=== PATIENT | female | born 1980 | race Caucasian/White ===

== ENCOUNTER 2019-06-03 12:18 | Inpatient (IN) | payer MEDICAID, OTHER ==
[~2019-06-03] VITALS: Ht 170.2 cm; Wt 79.4 kg
[2019-06-03] VITALS (11 sets, daily range): BP systolic 129–205; BP diastolic 74–125
[2019-06-03 12:56] LABS: CLARITY,URINE CLEAR (Clear); COLOR,URINE YELLOW (Yellow); GLUCOSE, URINE NEGATIVE (Neg); KETONES,URINE NEGATIVE (Neg); LEUKOCYTE ESTERASE ,URINE NEGATIVE (Neg); NITRITES, URINE NEGATIVE (Neg); OCCULT BLOOD,URINE SMALL (Neg); PH,URINE 5.5 (4.8-8.0); PROTEIN,URINE 100 mg/dl (Neg); UROBILINOGEN,URINE 0.2 E.U/dL (0.2-1.0)
[2019-06-03 12:59] LABS: UA COLLECTION TYPE CLN CATCH MIDSTREAM; URINE HCG NEGATIVE (NEG)
[2019-06-03 13:02] LABS: BACTERIA,URINE FEW /HPF (Neg); CELLULAR CAST 0-4 /LPF (NEGATIVE); RBC,URINE 0-2 /HPF (0-2); SQUAMOUS EPITHELIAL CELL,UR MODERATE /LPF (FEW)
[2019-06-03 13:13] LABS: BASOPHILS # (AUTO) 0.1 X10'3 (0-0.2); BASOPHILS % (AUTO) 0.8 % (0-1); EOSINOPHILS # (AUTO) 0.1 X10'3 (0-0.9); EOSINOPHILS % (AUTO) 1.5 % (0-6); HEMATOCRIT 24.8 % (35.0-45.0); HEMOGLOBIN 8.3 g/dl (12.0-16.0); LYMPHOCYTES # (AUTO) 0.9 X10'3 (1.1-4.8); LYMPHOCYTES % (AUTO) 11.8 % (21-51); MEAN CORPUSCULAR HEMOGLOBIN 30.9 PG (27.0-31.0); MEAN CORPUSCULAR HGB CONC 33.4 g/dL (33.0-36.5); MEAN CORPUSCULAR VOLUME 92.5 FL (78-98); MEAN PLATELET VOLUME 8.4 FL (7.4-10.4); MONOCYTES # (AUTO) 0.4 X10'3 (0-0.9); MONOCYTES % (AUTO) 5.4 % (2-12); NEUTROPHILS # (AUTO) 6.4 X10'3 (1.8-7.7); NEUTROPHILS % (AUTO) 80.5 % (42-75); PLATELET COUNT 328 X10'3 (140-440); RED BLOOD COUNT 2.69 X10'6 (4.20-5.60); RED CELL DISTRIBUTION WIDTH 14.7 % (11.5-14.5)
[2019-06-03 13:22] LABS: ALANINE AMINOTRANSFERASE 15 U/L (12-78); ALBUMIN 3.3 G/DL (3.4-5.0); ALBUMIN/GLOBULIN RATIO 0.9 (1.1-1.5); ALKALINE PHOSPHATASE 73 IU/L (46-116); ANION GAP 16 (8-16); ASPARTATE AMINO TRANSFERASE 4 U/L (10-37); BILIRUBIN,TOTAL 0.2 MG/DL (0.1-1.0); BLOOD UREA NITROGEN 119 MG/DL (7-18); BUN/CREATININE RATIO 11.2 (6.6-38.0); CALCIUM 8.5 MG/DL (8.5-10.1); CHLORIDE 107 MMOL/L (99-107); CREATININE 10.58 MG/DL (0.40-0.90); GLUCOSE 103 MG/DL (70-104); LIPASE 266 U/L (73-393); SODIUM 137 MMOL/L (135-145); eGFR 4 ML/MIN
[2019-06-03 13:25] LABS: POTASSIUM 6.8 MMOL/L (3.5-5.1); TOTAL CARBON DIOXIDE 14.1 MMOL/L (24-32)
[2019-06-03] MEDS ORDERED: insulin regular, human 10 units/0.1 ml syringe IV ONE (13:35)
[2019-06-03] MEDS ORDERED: sodium polystyrene sulfonate 15gm/60ml oral suspension PO ONE (13:35)
[2019-06-03] MEDS ORDERED: calcium gluconate inj. 1 GM in normal saline 100ml IV soln 100 ML IV ONE (13:35)
[2019-06-03] MEDS ORDERED: dextrose 50%-water 50ml dispensing syringe IV ONE (13:35)
--- NOTE | 2019-06-03 14:04 | NUR ---
DANY PAIZ AT BEDSIDE ,PT DEXTROSE AND INSULIN AND KAYLATE ADMINISTERED PER PROVIDER ORDERS,PT CALICUM AT PHARMACY ITS AVAILABLE WILL START.
--- NOTE | 2019-06-03 14:15 | NUR ---
CALICUM GLUCONATE INFUSING PER MD ORDERS,CO CHECKED WITH BAILEY RN,PT BP 213/128 PA CHENCHO AT BEDSIDE AND SHE IS AWARE.
[2019-06-03 14:17] LABS: MAGNESIUM 1.9 MG/DL (1.5-2.4); PHOSPHORUS 8.9 MG/DL (2.3-4.5)
--- NOTE | 2019-06-03 14:30 | NUR ---
ENTERER AT BEDSIDE,NO DISTRESS NOTED.WILL CNT TO MONITOR.
[2019-06-03] MEDS ORDERED: acetaminophen 325mg tablet PO PRN ×2 (14:45)
[2019-06-03] MEDS ORDERED: ondansetron/PF 4mg/2ml inj IV PRN (14:45)
[2019-06-03] MEDS: normal saline 1000ml 1,000 ML IV SCH ×2 (15:22→17:18)
[2019-06-03] MEDS ORDERED: LISI-643 PO (15:48)
[2019-06-03] MEDS ORDERED: AMLO5TAB4 PO (15:48)
[2019-06-03 16:03] LABS: ALBUMIN 3.2 G/DL (3.4-5.0); ANION GAP 17 (8-16); BLOOD UREA NITROGEN 124 MG/DL (7-18); BUN/CREATININE RATIO 11.4 (6.6-38.0); CHLORIDE 110 MMOL/L (99-107); CREATINE KINASE 39 U/L (26-192); CREATININE 10.89 MG/DL (0.40-0.90); GLUCOSE 52 MG/DL (70-104); POTASSIUM 4.8 MMOL/L (3.5-5.1); SODIUM 139 MMOL/L (135-145); eGFR 4 ML/MIN
[2019-06-03 16:06] LABS: TOTAL CARBON DIOXIDE 11.8 MMOL/L (24-32)
--- NOTE | 2019-06-03 16:08 | NUR ---
spoke to tiny stein about pt co2 level 11.8 as per tiny no need to call dr white in icu as pt co2 came down from 14.1 to 11.8 and pt has no cheif complaint ,will follow the orders.
[2019-06-03] MEDS ORDERED: hydrALAZINE 20mg/ml inj. IV ONE (17:05)
[2019-06-03] MEDS ORDERED: amLODIPine 5mg tablet PO SCH (17:05)
[2019-06-03 17:46] LABS: UA EOSINOPHILS NO EOS /HPF
--- NOTE | 2019-06-03 18:30 | NUR ---
Patient in room CICU 2014. I have received report from Stella AMARO and had the opportunity to ask questions and assume patient care. Pt resting in bed, on room air with spo2 at 98%, no c/o pain, no s/s of distress, visitor at bedside, all monitoring alarms in place, non skid socks on, call light in reach. Will continue to monitor.
[2019-06-03] MEDS: heparin, porcine 5000 units/ml vial SQ SCH (19:37)
[2019-06-03] MEDS: docusate sod 100mg capsule PO SCH (19:40)
[2019-06-03 20:27] LABS: ALBUMIN 2.9 G/DL (3.4-5.0); ANION GAP 18 (8-16); BLOOD UREA NITROGEN 125 MG/DL (7-18); BUN/CREATININE RATIO 11.7 (6.6-38.0); CALCIUM 8.4 MG/DL (8.5-10.1); CHLORIDE 106 MMOL/L (99-107); CREATININE 10.71 MG/DL (0.40-0.90); GLUCOSE 185 MG/DL (70-104); PHOSPHORUS 8.1 MG/DL (2.3-4.5); POTASSIUM 4.5 MMOL/L (3.5-5.1); SODIUM 137 MMOL/L (135-145); eGFR 4 ML/MIN
[2019-06-03 20:32] LABS: TOTAL CARBON DIOXIDE 13.5 MMOL/L (24-32)
[2019-06-04] VITALS (22 sets, daily range): BP systolic 123–158; BP diastolic 62–164
--- NOTE | 2019-06-04 00:15 | NUR ---
Spoke with Joseluis Pagan HARNESS RIGGER regarding magallanes cath insertion, pt is refusing cath placement, post void residual is 100ml. At this time ok to not place magallanes. Will continue to monitor.
[2019-06-04 00:59] LABS: ALBUMIN 2.8 G/DL (3.4-5.0); ANION GAP 18 (8-16); BLOOD UREA NITROGEN 113 MG/DL (7-18); BUN/CREATININE RATIO 11.1 (6.6-38.0); CHLORIDE 107 MMOL/L (99-107); CREATININE 10.15 MG/DL (0.40-0.90); GLUCOSE 143 MG/DL (70-104); PHOSPHORUS 8.5 MG/DL (2.3-4.5); POTASSIUM 4.4 MMOL/L (3.5-5.1); SODIUM 137 MMOL/L (135-145); eGFR 4 ML/MIN
[2019-06-04 01:03] LABS: TOTAL CARBON DIOXIDE 12.1 MMOL/L (24-32)
[2019-06-04] MEDS: normal saline 1000ml 1,000 ML IV SCH (05:04)
[2019-06-04 05:34] LABS: BASOPHILS % (AUTO) 0.5 % (0-1); EOSINOPHILS # (AUTO) 0.2 X10'3 (0-0.9); EOSINOPHILS % (AUTO) 2.4 % (0-6); LYMPHOCYTES # (AUTO) 0.9 X10'3 (1.1-4.8); LYMPHOCYTES % (AUTO) 13.6 % (21-51); MEAN CORPUSCULAR HEMOGLOBIN 30.2 PG (27.0-31.0); MEAN CORPUSCULAR HGB CONC 33.1 g/dL (33.0-36.5); MEAN CORPUSCULAR VOLUME 91.2 FL (78-98); MEAN PLATELET VOLUME 8.7 FL (7.4-10.4); MONOCYTES # (AUTO) 0.5 X10'3 (0-0.9); MONOCYTES % (AUTO) 7.9 % (2-12); NEUTROPHILS # (AUTO) 5.1 X10'3 (1.8-7.7); NEUTROPHILS % (AUTO) 75.6 % (42-75); PLATELET COUNT 281 X10'3 (140-440); RED BLOOD COUNT 2.33 X10'6 (4.20-5.60); RED CELL DISTRIBUTION WIDTH 14.4 % (11.5-14.5); WHITE BLOOD COUNT 6.7 X10'3 (4.5-11.0)
[2019-06-04 05:45] LABS: HEMATOCRIT 21.2 % (35.0-45.0)
[2019-06-04 06:15] LABS: ALANINE AMINOTRANSFERASE 14 U/L (12-78); ALBUMIN 2.8 G/DL (3.4-5.0); ALBUMIN/GLOBULIN RATIO 0.8 (1.1-1.5); ALKALINE PHOSPHATASE 61 IU/L (46-116); ANION GAP 18 (8-16); ASPARTATE AMINO TRANSFERASE 4 U/L (10-37); BILIRUBIN,TOTAL 0.2 MG/DL (0.1-1.0); BLOOD UREA NITROGEN 111 MG/DL (7-18); BUN/CREATININE RATIO 10.9 (6.6-38.0); CHLORIDE 109 MMOL/L (99-107); CREATININE 10.14 MG/DL (0.40-0.90); GLUCOSE 100 MG/DL (70-104); MAGNESIUM 1.7 MG/DL (1.5-2.4); POTASSIUM 4.7 MMOL/L (3.5-5.1); SODIUM 139 MMOL/L (135-145); TOTAL PROTEIN 6.1 G/DL (6.4-8.2); eGFR 4 ML/MIN
--- NOTE | 2019-06-04 06:26 | NUR ---
Problems reprioritized. Patient report given, questions answered & plan of care reviewed with Stella AMARO.
[2019-06-04 06:28] LABS: PHOSPHORUS 9.2 MG/DL (2.3-4.5)
[2019-06-04 06:30] LABS: TOTAL CARBON DIOXIDE 11.6 MMOL/L (24-32)
--- NOTE | 2019-06-04 06:39 | NUR ---
Patient in room CICU 2014. I have received report from SONDRA Pina and had the opportunity to ask questions and assume patient care.
[2019-06-04] MEDS ORDERED: sodium bicarbonate (8.4%) inj. 150 MEQ in dextrose 5%-water 1,000 ML IV SCH (07:10)
[2019-06-04] MEDS ORDERED: sodium bicarbonate (8.4%) inj. 75 MEQ in dextrose 5% water 500ml 1,075 ML IV SCH (07:20)
[2019-06-04 07:40] LABS: MEAN CORPUSCULAR HGB CONC 32.8 g/dL (33.0-36.5); MEAN CORPUSCULAR VOLUME 91.6 FL (78-98); MEAN PLATELET VOLUME 8.8 FL (7.4-10.4); PLATELET COUNT 281 X10'3 (140-440); RED BLOOD COUNT 2.33 X10'6 (4.20-5.60); RED CELL DISTRIBUTION WIDTH 14.4 % (11.5-14.5); WHITE BLOOD COUNT 5.9 X10'3 (4.5-11.0)
[2019-06-04 07:41] LABS: HEMATOCRIT 21.3 % (35.0-45.0)
[2019-06-04] MEDS: docusate sod 100mg capsule PO SCH ×2 (08:00→20:00)
[2019-06-04 08:08] LABS: ALBUMIN 2.7 G/DL (3.4-5.0); ANION GAP 16 (8-16); BLOOD UREA NITROGEN 116 MG/DL (7-18); BUN/CREATININE RATIO 11.1 (6.6-38.0); CHLORIDE 110 MMOL/L (99-107); CREATININE 10.49 MG/DL (0.40-0.90); GLUCOSE 85 MG/DL (70-104); SODIUM 139 MMOL/L (135-145); eGFR 4 ML/MIN
[2019-06-04 08:10] LABS: TOTAL CARBON DIOXIDE 12.8 MMOL/L (24-32)
[2019-06-04] MEDS: sodium bicarbonate (8.4%) inj. 75 MEQ in dextrose 5% water 500ml 500 ML IV SCH ×3 (08:54→19:20)
[2019-06-04] MEDS: amLODIPine 5mg tablet PO SCH (08:55)
[2019-06-04] MEDS: heparin, porcine 5000 units/ml vial SQ SCH ×2 (08:55→19:25)
[2019-06-04] MEDS: pantoprazole 40 MG vial IV SCH (09:30)
--- NOTE | 2019-06-04 11:30 | NUR ---
Dr Molina spoke with patient re the plan for dialysis and placement of tunnelled cath. Given detailed plan of care and questions answered. Patient made npo pending the tdc. Given printed information on the procedure, dialysis and diet. Market Maker consult made for help with financial aspect.
[2019-06-04] MEDS: calcium acetate 667mg (PhosLO) capsule PO SCH ×2 (12:41→18:17)
[2019-06-04 13:29] LABS: ALBUMIN 2.8 G/DL (3.4-5.0); ANION GAP 15 (8-16); BLOOD UREA NITROGEN 113 MG/DL (7-18); BUN/CREATININE RATIO 11.3 (6.6-38.0); CALCIUM 8.4 MG/DL (8.5-10.1); CHLORIDE 108 MMOL/L (99-107); CREATININE 10.03 MG/DL (0.40-0.90); GLUCOSE 121 MG/DL (70-104); PHOSPHORUS 7.8 MG/DL (2.3-4.5); POTASSIUM 4.8 MMOL/L (3.5-5.1); SODIUM 138 MMOL/L (135-145); TOTAL CARBON DIOXIDE 15.2 MMOL/L (24-32); eGFR 4 ML/MIN
[2019-06-04 16:48] LABS: ALBUMIN 2.9 G/DL (3.4-5.0); ANION GAP 16 (8-16); BLOOD UREA NITROGEN 112 MG/DL (7-18); BUN/CREATININE RATIO 11.1 (6.6-38.0); CALCIUM 8.3 MG/DL (8.5-10.1); CHLORIDE 108 MMOL/L (99-107); CREATININE 10.05 MG/DL (0.40-0.90); GLUCOSE 98 MG/DL (70-104); POTASSIUM 4.6 MMOL/L (3.5-5.1); SODIUM 140 MMOL/L (135-145); TOTAL CARBON DIOXIDE 16.1 MMOL/L (24-32); eGFR 4 ML/MIN
[2019-06-04 16:49] LABS: % IRON SATURATION 9 % (11-46); IRON 22 UG/DL (49-151); TOTAL IRON BINDING CAPACITY 255 UG/DL (259-388)
--- NOTE | 2019-06-04 17:15 | NUR ---
Call from IR that they cannot fit patient into schedule for TDC this evening; Dr Molina took call-they will do first thing tomorrow.
--- NOTE | 2019-06-04 18:15 | NUR ---
Patient in room CICU 2014. I have received report from Stella AMARO and had the opportunity to ask questions and assume patient care. Pt resting in bed with HOB elevated, eating dinner, no s/s of distress, no c/o pain, IV fluids infusing via PIV per provider orders, visitor is at bedside. See interventions, IV flowsheet and EMR for further information. All monitoring alarms audible. Non skid socks on, bed low and locked. Will continue to monitor.
[2019-06-04 20:01] LABS: ALBUMIN 2.8 G/DL (3.4-5.0); ANION GAP 16 (8-16); BLOOD UREA NITROGEN 107 MG/DL (7-18); BUN/CREATININE RATIO 10.5 (6.6-38.0); CALCIUM 8.2 MG/DL (8.5-10.1); CHLORIDE 105 MMOL/L (99-107); CREATININE 10.16 MG/DL (0.40-0.90); GLUCOSE 277 MG/DL (70-104); PHOSPHORUS 6.4 MG/DL (2.3-4.5); POTASSIUM 3.7 MMOL/L (3.5-5.1); SODIUM 137 MMOL/L (135-145); TOTAL CARBON DIOXIDE 16.5 MMOL/L (24-32); eGFR 4 ML/MIN
[2019-06-05] VITALS (26 sets, daily range): BP systolic 115–189; BP diastolic 79–106
[2019-06-05] MEDS: sodium bicarbonate (8.4%) inj. 75 MEQ in dextrose 5% water 500ml 500 ML IV SCH ×5 (02:06→23:36)
[2019-06-05 02:41] LABS: BASOPHILS # (AUTO) 0.1 X10'3 (0-0.2); BASOPHILS % (AUTO) 1.1 % (0-1); EOSINOPHILS # (AUTO) 0.2 X10'3 (0-0.9); EOSINOPHILS % (AUTO) 3.9 % (0-6); LYMPHOCYTES # (AUTO) 1.4 X10'3 (1.1-4.8); MEAN CORPUSCULAR HEMOGLOBIN 30.5 PG (27.0-31.0); MEAN CORPUSCULAR HGB CONC 33.6 g/dL (33.0-36.5); MEAN CORPUSCULAR VOLUME 90.7 FL (78-98); MEAN PLATELET VOLUME 8.8 FL (7.4-10.4); MONOCYTES # (AUTO) 0.4 X10'3 (0-0.9); MONOCYTES % (AUTO) 7.3 % (2-12); NEUTROPHILS # (AUTO) 3.4 X10'3 (1.8-7.7); NEUTROPHILS % (AUTO) 62.7 % (42-75); PLATELET COUNT 281 X10'3 (140-440); RED BLOOD COUNT 2.26 X10'6 (4.20-5.60); WHITE BLOOD COUNT 5.5 X10'3 (4.5-11.0)
[2019-06-05 02:45] LABS: HEMATOCRIT 20.5 % (35.0-45.0); HEMOGLOBIN 6.9 g/dl (12.0-16.0)
[2019-06-05 02:55] LABS: ALANINE AMINOTRANSFERASE 14 U/L (12-78); ALBUMIN 2.6 G/DL (3.4-5.0); ALBUMIN/GLOBULIN RATIO 0.8 (1.1-1.5); ALKALINE PHOSPHATASE 68 IU/L (46-116); ANION GAP 12 (8-16); ASPARTATE AMINO TRANSFERASE 8 U/L (10-37); BILIRUBIN,TOTAL 0.2 MG/DL (0.1-1.0); BLOOD UREA NITROGEN 107 MG/DL (7-18); BUN/CREATININE RATIO 10.4 (6.6-38.0); CALCIUM 8.2 MG/DL (8.5-10.1); CHLORIDE 108 MMOL/L (99-107); GLUCOSE 103 MG/DL (70-104); MAGNESIUM 1.8 MG/DL (1.5-2.4); POTASSIUM 4.3 MMOL/L (3.5-5.1); SODIUM 140 MMOL/L (135-145); TOTAL PROTEIN 5.9 G/DL (6.4-8.2); eGFR 4 ML/MIN
--- NOTE | 2019-06-05 06:17 | NUR ---
Problems reprioritized. Patient report given, questions answered & plan of care reviewed with Taisha AMARO.
[2019-06-05] MEDS ORDERED: fentaNYL/PF 50MCG/1 ML 2ML syringe IV PRN (07:10)
[2019-06-05] MEDS ORDERED: LIDOcaine 1%/PF 5ML 10 MG/ML VIAL SQ ONE (07:10)
[2019-06-05] MEDS ORDERED: midazolam 2 mg/2 ml injection IV PRN (07:10)
[2019-06-05] MEDS ORDERED: heparin 1,000 units/ml 10ml inj ICATH ONE (07:10)
[2019-06-05 07:23] LABS: MEAN CORPUSCULAR HEMOGLOBIN 30.2 PG (27.0-31.0); MEAN CORPUSCULAR HGB CONC 33.3 g/dL (33.0-36.5); MEAN CORPUSCULAR VOLUME 90.9 FL (78-98); MEAN PLATELET VOLUME 8.7 FL (7.4-10.4); PLATELET COUNT 278 X10'3 (140-440); RED BLOOD COUNT 2.21 X10'6 (4.20-5.60); RED CELL DISTRIBUTION WIDTH 14.2 % (11.5-14.5)
--- NOTE | 2019-06-05 07:29 | NUR ---
TRANSFERRED ,VIA BED, TO IR FOR T.D.C. PLACEMENT AT THIS TIME. PT AND INR RESULTS PENDING. ONE UNIT OF [place]. ORDERED. Addendum: 06/05/19 at 8733 by Cecy Floyd RN Amended: Links added.
[2019-06-05] MEDS ORDERED: LIDOcaine 1%/PF 5ML 10 MG/ML VIAL ONE (07:31)
[2019-06-05 07:35] LABS: HEMOGLOBIN 6.7 g/dl (12.0-16.0)
[2019-06-05] MEDS ORDERED: ceFAZolin 1GM/D5W- ADD-VANTAGE 50 ML IV ONE (07:35)
[2019-06-05] MEDS ORDERED: heparin 1,000unit/ml 10ml vial 10 ML ONE (07:35)
[2019-06-05] MEDS ORDERED: midazolam 2 mg/2 ml injection ONE (07:35)
[2019-06-05 07:36] LABS: HEMATOCRIT 20.1 % (35.0-45.0)
[2019-06-05] MEDS ORDERED: fentaNYL/PF 50MCG/1 ML 2ML syringe ONE (07:36)
[2019-06-05 07:42] LABS: PARTIAL THROMBOPLASTIN TIME 21 SECONDS (22-32)
[2019-06-05] MEDS ORDERED: normal saline 1000ml 250 ML IV PRN ×2 (08:00→09:21)
[2019-06-05] MEDS ORDERED: epoetin 20,000 units/ml inj IV ONE ×2 (08:00→09:25)
[2019-06-05] MEDS: docusate sod 100mg capsule PO SCH ×2 (08:00→21:31)
[2019-06-05] MEDS ORDERED: heparin 1,000 units/ml 10ml inj HE ONE ×4 (08:00→09:25)
[2019-06-05 08:03] LABS: ALBUMIN 2.6 G/DL (3.4-5.0); ANION GAP 17 (8-16); BLOOD UREA NITROGEN 109 MG/DL (7-18); BUN/CREATININE RATIO 10.8 (6.6-38.0); CALCIUM 7.6 MG/DL (8.5-10.1); CHLORIDE 107 MMOL/L (99-107); CREATININE 10.08 MG/DL (0.40-0.90); GLUCOSE 88 MG/DL (70-104); PHOSPHORUS 8.2 MG/DL (2.3-4.5); POTASSIUM 4.5 MMOL/L (3.5-5.1); SODIUM 144 MMOL/L (135-145); TOTAL CARBON DIOXIDE 20.4 MMOL/L (24-32); eGFR 4 ML/MIN
--- NOTE | 2019-06-05 10:00 | NUR ---
PAT[place] [facility] [place]FFICULTY; HOWEVER, B/P CUFF FREQ OFF. EDUCATION REGARDING B/P CUFF AND RECORDED B/P GIVEN.HOB UP CALL LIGHT IN REACH. Addendum: 06/05/19 at 1806 by Cecy Floyd RN Amended: Links added.
[2019-06-05] MEDS: calcium acetate 667mg (PhosLO) capsule PO SCH ×3 (10:01→17:43)
[2019-06-05] MEDS: heparin, porcine 5000 units/ml vial SQ SCH ×2 (10:01→21:31)
[2019-06-05] MEDS: amLODIPine 5mg tablet PO SCH (10:02)
[2019-06-05] MEDS: pantoprazole 40 MG vial IV SCH (10:07)
[2019-06-05] MEDS ORDERED: labetalol 20mg/4ml (5mg/ml) syringe IV ONE (11:45)
--- NOTE | 2019-06-05 12:00 | NUR ---
PATIENT'S B/P ELEVATED. CALL PLACED TO DR. DEL RIO; ORDERS RECEIVED AND NOTED. LABETALOL 10 MG IV GIVEN. Addendum: 06/05/19 at 1806 by Cecy Floyd RN Amended: Links added.
[2019-06-05 14:28] LABS: BASOPHILS % (AUTO) 0.5 % (0-1); EOSINOPHILS # (AUTO) 0.2 X10'3 (0-0.9); EOSINOPHILS % (AUTO) 2.6 % (0-6); HEMATOCRIT 24.2 % (35.0-45.0); HEMOGLOBIN 8.1 g/dl (12.0-16.0); LYMPHOCYTES # (AUTO) 1.1 X10'3 (1.1-4.8); LYMPHOCYTES % (AUTO) 15.8 % (21-51); MEAN CORPUSCULAR HEMOGLOBIN 30.3 PG (27.0-31.0); MEAN CORPUSCULAR HGB CONC 33.3 g/dL (33.0-36.5); MEAN CORPUSCULAR VOLUME 91.1 FL (78-98); MEAN PLATELET VOLUME 9.5 FL (7.4-10.4); MONOCYTES # (AUTO) 0.4 X10'3 (0-0.9); MONOCYTES % (AUTO) 5.7 % (2-12); NEUTROPHILS # (AUTO) 5.2 X10'3 (1.8-7.7); NEUTROPHILS % (AUTO) 75.4 % (42-75); PLATELET COUNT 235 X10'3 (140-440); RED BLOOD COUNT 2.66 X10'6 (4.20-5.60); RED CELL DISTRIBUTION WIDTH 14.1 % (11.5-14.5); WHITE BLOOD COUNT 6.9 X10'3 (4.5-11.0)
[2019-06-05 14:44] LABS: ALBUMIN 2.8 G/DL (3.4-5.0); ANION GAP 16 (8-16); BLOOD UREA NITROGEN 101 MG/DL (7-18); BUN/CREATININE RATIO 10.6 (6.6-38.0); CHLORIDE 105 MMOL/L (99-107); CREATININE 9.51 MG/DL (0.40-0.90); GLUCOSE 156 MG/DL (70-104); PHOSPHORUS 7.2 MG/DL (2.3-4.5); POTASSIUM 4.4 MMOL/L (3.5-5.1); SODIUM 140 MMOL/L (135-145); TOTAL CARBON DIOXIDE 18.9 MMOL/L (24-32); eGFR 5 ML/MIN
[2019-06-05] MEDS ORDERED: lactulose 20gm/30ml cup PO PRN (14:45)
[2019-06-05] MEDS: HYDROcodone/acetaminophen 10/325mg tab PO PRN (15:07)
[2019-06-05] MEDS ORDERED: nicotine 21mg patch - 24 hr TD ONE (15:50)
--- NOTE | 2019-06-05 16:01 | NUR ---
AT 0900 PATIENT RETURNED FROM IR WITH Cm SZYMANSKI. DENIES C/P SOB AND, OR, NAUSEA.ONE UNIT OF P.R.B.C. STARTED IN I.R AND INFUSING AT THIS TIME. SR. ANGUS HOB UP CALL LIGHT IN REACH. Addendum: 06/05/19 at 1636 by Cecy Floyd RN Amended: Links added.
--- NOTE | 2019-06-05 18:39 | NUR ---
Patient in room CICU 2014. I have received report from Henna RN and had the opportunity to ask questions and assume patient care.
[2019-06-05 19:58] LABS: BASOPHILS % (AUTO) 0.5 % (0-1); EOSINOPHILS # (AUTO) 0.1 X10'3 (0-0.9); HEMATOCRIT 23.9 % (35.0-45.0); HEMOGLOBIN 8.4 g/dl (12.0-16.0); LYMPHOCYTES # (AUTO) 0.8 X10'3 (1.1-4.8); LYMPHOCYTES % (AUTO) 16.7 % (21-51); MEAN CORPUSCULAR HEMOGLOBIN 31.1 PG (27.0-31.0); MEAN CORPUSCULAR VOLUME 88.8 FL (78-98); MEAN PLATELET VOLUME 8.4 FL (7.4-10.4); MONOCYTES # (AUTO) 0.3 X10'3 (0-0.9); MONOCYTES % (AUTO) 6.7 % (2-12); NEUTROPHILS # (AUTO) 3.6 X10'3 (1.8-7.7); NEUTROPHILS % (AUTO) 74.1 % (42-75); PLATELET COUNT 284 X10'3 (140-440); RED BLOOD COUNT 2.69 X10'6 (4.20-5.60); WHITE BLOOD COUNT 4.9 X10'3 (4.5-11.0)
[2019-06-05 20:17] LABS: ALBUMIN 2.9 G/DL (3.4-5.0); ANION GAP 8 (8-16); BLOOD UREA NITROGEN 45 MG/DL (7-18); BUN/CREATININE RATIO 9.7 (6.6-38.0); CALCIUM 8.4 MG/DL (8.5-10.1); CHLORIDE 103 MMOL/L (99-107); CREATININE 4.65 MG/DL (0.40-0.90); GLUCOSE 145 MG/DL (70-104); PHOSPHORUS 3.9 MG/DL (2.3-4.5); POTASSIUM 3.8 MMOL/L (3.5-5.1); SODIUM 139 MMOL/L (135-145); TOTAL CARBON DIOXIDE 28.4 MMOL/L (24-32); eGFR 10 ML/MIN
[2019-06-05] MEDS ORDERED: labetalol 20mg/4ml (5mg/ml) syringe IV PRN (22:45)
[2019-06-06] VITALS (21 sets, daily range): BP systolic 143–186; BP diastolic 10–104
[2019-06-06] MEDS ORDERED: temazepam 15mg capsule PO PRN
--- NOTE | 2019-06-06 00:45 | NUR ---
Problems reprioritized. Patient report given, questions answered & plan of care reviewed with Doyle AMARO.
[2019-06-06] MEDS: hydrOXYzine 25 MG tablet PO PRN ×2 (00:53→09:26)
[2019-06-06] MEDS ORDERED: labetalol 20mg/4ml (5mg/ml) syringe IV PRN (01:30)
[2019-06-06] MEDS ORDERED: labetalol 20mg/4ml (5mg/ml) syringe IV ONE (01:30)
[2019-06-06 05:44] LABS: BASOPHILS % (AUTO) 0.3 % (0-1); EOSINOPHILS # (AUTO) 0.2 X10'3 (0-0.9); EOSINOPHILS % (AUTO) 2.4 % (0-6); HEMATOCRIT 23.5 % (35.0-45.0); HEMOGLOBIN 8.1 g/dl (12.0-16.0); LYMPHOCYTES # (AUTO) 1.3 X10'3 (1.1-4.8); LYMPHOCYTES % (AUTO) 19.4 % (21-51); MEAN CORPUSCULAR HEMOGLOBIN 30.6 PG (27.0-31.0); MEAN CORPUSCULAR HGB CONC 34.4 g/dL (33.0-36.5); MEAN CORPUSCULAR VOLUME 89.1 FL (78-98); MEAN PLATELET VOLUME 8.9 FL (7.4-10.4); MONOCYTES # (AUTO) 0.4 X10'3 (0-0.9); MONOCYTES % (AUTO) 6.1 % (2-12); NEUTROPHILS # (AUTO) 4.8 X10'3 (1.8-7.7); NEUTROPHILS % (AUTO) 71.8 % (42-75); PLATELET COUNT 284 X10'3 (140-440); RED BLOOD COUNT 2.64 X10'6 (4.20-5.60); RED CELL DISTRIBUTION WIDTH 13.8 % (11.5-14.5); WHITE BLOOD COUNT 6.7 X10'3 (4.5-11.0)
[2019-06-06 05:49] LABS: ALANINE AMINOTRANSFERASE 15 U/L (12-78); ALBUMIN 2.8 G/DL (3.4-5.0); ALBUMIN/GLOBULIN RATIO 0.8 (1.1-1.5); ALKALINE PHOSPHATASE 62 IU/L (46-116); ANION GAP 11 (8-16); ASPARTATE AMINO TRANSFERASE 9 U/L (10-37); BILIRUBIN,TOTAL 0.1 MG/DL (0.1-1.0); BLOOD UREA NITROGEN 49 MG/DL (7-18); BUN/CREATININE RATIO 8.3 (6.6-38.0); CALCIUM 8.4 MG/DL (8.5-10.1); CHLORIDE 105 MMOL/L (99-107); CREATININE 5.91 MG/DL (0.40-0.90); GLUCOSE 123 MG/DL (70-104); MAGNESIUM 1.7 MG/DL (1.5-2.4); PHOSPHORUS 6.6 MG/DL (2.3-4.5); POTASSIUM 3.7 MMOL/L (3.5-5.1); SODIUM 143 MMOL/L (135-145); TOTAL CARBON DIOXIDE 27.3 MMOL/L (24-32); TOTAL PROTEIN 6.1 G/DL (6.4-8.2); eGFR 8 ML/MIN
[2019-06-06] MEDS ORDERED: normal saline 1000ml 250 ML IV PRN ×2 (06:50→08:00)
[2019-06-06] MEDS ORDERED: heparin 1,000unit/ml 10ml vial 10 ML IV ONE ×2 (06:50→08:00)
[2019-06-06] MEDS ORDERED: epoetin 20,000 units/ml inj IV ONE ×2 (06:50→08:00)
[2019-06-06] MEDS ORDERED: heparin 1,000 units/ml 10ml inj HE ONE ×3 (06:55→08:00)
[2019-06-06] MEDS: pantoprazole 40mg Tablet.DR PO SCH (07:54)
[2019-06-06] MEDS: heparin, porcine 5000 units/ml vial SQ SCH ×2 (07:54→19:38)
[2019-06-06] MEDS: amLODIPine 5mg tablet PO SCH ×2 (07:54→21:43)
[2019-06-06] MEDS: docusate sod 100mg capsule PO SCH ×2 (07:54→19:38)
[2019-06-06] MEDS: nicotine 21mg patch - 24 hr TD SCH (07:55)
[2019-06-06 08:16] LABS: COMPLEMENT C3, SERUM 110 mg/dL (82-167); COMPLEMENT C4, SERUM 19 mg/dL (14-44)
[2019-06-06 09:11] LABS: ALBUMIN 2.8 G/DL (3.4-5.0); ANION GAP 8 (8-16); BLOOD UREA NITROGEN 49 MG/DL (7-18); BUN/CREATININE RATIO 7.7 (6.6-38.0); CHLORIDE 107 MMOL/L (99-107); CREATININE 6.36 MG/DL (0.40-0.90); GLUCOSE 88 MG/DL (70-104); PHOSPHORUS 6.9 MG/DL (2.3-4.5); POTASSIUM 4.2 MMOL/L (3.5-5.1); SODIUM 144 MMOL/L (135-145); TOTAL CARBON DIOXIDE 29.2 MMOL/L (24-32); eGFR 7 ML/MIN
[2019-06-06] MEDS: calcium acetate 667mg (PhosLO) capsule PO SCH ×3 (10:46→17:42)
[2019-06-06] MEDS: labetalol 100mg tablet PO SCH ×2 (11:10→19:39)
[2019-06-06] MEDS: folic acid/vitamin B complex w/vitamin C 0.8mg tablet PO SCH (11:59)
[2019-06-06 12:46] LABS: % IRON SATURATION 20 % (11-46); IRON 52 UG/DL (49-151); TOTAL IRON BINDING CAPACITY 261 UG/DL (259-388)
[2019-06-06 13:10] LABS: ANTI-DSDNA ANTIBODIES 1 IU/mL (0-9)
[2019-06-06 15:09] LABS: HBSAG SCREEN Negative (Negative)
--- NOTE | 2019-06-06 16:44 | NUR ---
Pt transferred to room 4021A at this time, Per W/C. In stable condition. REport given to RN (Susy) .
--- NOTE | 2019-06-06 17:00 | NUR ---
Patient in room ORTHO 4021. I have received report from DUNG AMARO and had the opportunity to ask questions and assume patient care.
--- NOTE | 2019-06-06 18:20 | NUR ---
Problems reprioritized. Patient report given, questions answered & plan of care reviewed with GERTRUDE AMARO.
--- NOTE | 2019-06-06 18:20 | NUR ---
Patient in room ORTHO 4021. I have received report from Jonn AMARO and had the opportunity to ask questions and assume patient care.
[2019-06-06] MEDS ORDERED: labetalol 100mg tablet PO SCH (20:00)
[2019-06-07 06:00] VITALS: BP 158/90
--- NOTE | 2019-06-07 06:04 | NUR ---
Problems reprioritized. Patient report given, questions answered & plan of care reviewed with Jonn AMARO.
--- NOTE | 2019-06-07 06:05 | NUR ---
Patient in room ORTHO 4021. I have received report from GERTRUDE AMARO and had the opportunity to ask questions and assume patient care.
[2019-06-07 06:51] LABS: BASOPHILS % (AUTO) 0.7 % (0-1); EOSINOPHILS # (AUTO) 0.3 X10'3 (0-0.9); EOSINOPHILS % (AUTO) 4.4 % (0-6); HEMOGLOBIN 8.1 g/dl (12.0-16.0); LYMPHOCYTES # (AUTO) 1.3 X10'3 (1.1-4.8); LYMPHOCYTES % (AUTO) 23.2 % (21-51); MEAN CORPUSCULAR HEMOGLOBIN 30.8 PG (27.0-31.0); MEAN CORPUSCULAR HGB CONC 33.8 g/dL (33.0-36.5); MEAN PLATELET VOLUME 8.4 FL (7.4-10.4); MONOCYTES # (AUTO) 0.6 X10'3 (0-0.9); MONOCYTES % (AUTO) 9.7 % (2-12); NEUTROPHILS # (AUTO) 3.6 X10'3 (1.8-7.7); PLATELET COUNT 269 X10'3 (140-440); RED BLOOD COUNT 2.64 X10'6 (4.20-5.60); RED CELL DISTRIBUTION WIDTH 14.2 % (11.5-14.5); WHITE BLOOD COUNT 5.7 X10'3 (4.5-11.0)
[2019-06-07 07:13] LABS: ALANINE AMINOTRANSFERASE 13 U/L (12-78); ALBUMIN 2.8 G/DL (3.4-5.0); ALBUMIN/GLOBULIN RATIO 0.8 (1.1-1.5); ALKALINE PHOSPHATASE 58 IU/L (46-116); ANION GAP 9 (8-16); ASPARTATE AMINO TRANSFERASE 9 U/L (10-37); BILIRUBIN,TOTAL 0.2 MG/DL (0.1-1.0); BLOOD UREA NITROGEN 37 MG/DL (7-18); BUN/CREATININE RATIO 7.6 (6.6-38.0); CALCIUM 9.3 MG/DL (8.5-10.1); CHLORIDE 106 MMOL/L (99-107); CREATININE 4.84 MG/DL (0.40-0.90); GLUCOSE 93 MG/DL (70-104); MAGNESIUM 2.1 MG/DL (1.5-2.4); PHOSPHORUS 5.9 MG/DL (2.3-4.5); POTASSIUM 5.2 MMOL/L (3.5-5.1); SODIUM 143 MMOL/L (135-145); TOTAL CARBON DIOXIDE 28.3 MMOL/L (24-32); TOTAL PROTEIN 6.3 G/DL (6.4-8.2); eGFR 10 ML/MIN
[2019-06-07] MEDS: docusate sod 100mg capsule PO SCH ×2 (08:32→20:00)
[2019-06-07] MEDS: sodium ferric gluc complex inj 125 MG in normal saline 100ml IV soln 100 ML IV SCH (08:32)
[2019-06-07] MEDS: labetalol 100mg tablet PO SCH ×2 (08:33→20:00)
[2019-06-07] MEDS: folic acid/vitamin B complex w/vitamin C 0.8mg tablet PO SCH (08:33)
[2019-06-07] MEDS: calcium acetate 667mg (PhosLO) capsule PO SCH ×3 (08:36→18:29)
[2019-06-07] MEDS: heparin, porcine 5000 units/ml vial SQ SCH ×2 (08:36→20:00)
[2019-06-07] MEDS: nicotine 21mg patch - 24 hr TD SCH (08:39)
[2019-06-07] MEDS: pantoprazole 40mg Tablet.DR PO SCH (08:39)
[2019-06-07 10:00] VITALS: BP 163/93
--- NOTE | 2019-06-07 10:21 | NUR ---
Initial: Pt admit with renal failure and hyperkalemia, s/p CT which revealed possible pelvic mass per MD notes. Pt has been started on dialysis as well as Nephro-gail, Iron, and PhosLo. Pt currently on renal diet documented with 75-100% PO intake meeting nutrient needs with adequate protein to meet the demands of HD. LBM 06/06. No edema or wounds. No nutrition diagnosis at this time. Will continue to follow. Recommendations: 1) Continue renal diet 2) Monitor need for ONS if PO intake declines 3) Routine bowel care 4) Wt per rx Addendum: 06/07/19 at [address] Amended: Links added.
--- NOTE | 2019-06-07 18:25 | NUR ---
Problems reprioritized. Patient report given, questions answered & plan of care reviewed with TYRA AMARO.
[2019-06-07 19:00] VITALS: BP 197/112
[2019-06-07] MEDS: HYDROcodone/acetaminophen 10/325mg tab PO PRN (21:00)
[2019-06-07] MEDS: amLODIPine 5mg tablet PO SCH (21:02)
[2019-06-07 23:00] VITALS: BP 181/98
[2019-06-08 06:00] VITALS: BP 168/93
--- NOTE | 2019-06-08 06:21 | NUR ---
report received from SONDRA Dean
[2019-06-08 06:22] LABS: BASOPHILS % (AUTO) 0.5 % (0-1); EOSINOPHILS # (AUTO) 0.4 X10'3 (0-0.9); EOSINOPHILS % (AUTO) 4.8 % (0-6); HEMATOCRIT 23.6 % (35.0-45.0); HEMOGLOBIN 7.9 g/dl (12.0-16.0); LYMPHOCYTES # (AUTO) 1.6 X10'3 (1.1-4.8); LYMPHOCYTES % (AUTO) 20.7 % (21-51); MEAN CORPUSCULAR HEMOGLOBIN 31.1 PG (27.0-31.0); MEAN CORPUSCULAR HGB CONC 33.5 g/dL (33.0-36.5); MEAN CORPUSCULAR VOLUME 92.8 FL (78-98); MEAN PLATELET VOLUME 8.6 FL (7.4-10.4); MONOCYTES # (AUTO) 0.7 X10'3 (0-0.9); MONOCYTES % (AUTO) 8.5 % (2-12); NEUTROPHILS % (AUTO) 65.5 % (42-75); PLATELET COUNT 282 X10'3 (140-440); RED BLOOD COUNT 2.55 X10'6 (4.20-5.60); RED CELL DISTRIBUTION WIDTH 14.1 % (11.5-14.5); WHITE BLOOD COUNT 7.6 X10'3 (4.5-11.0)
[2019-06-08 06:35] LABS: ALANINE AMINOTRANSFERASE 14 U/L (12-78); ALBUMIN 2.9 G/DL (3.4-5.0); ALBUMIN/GLOBULIN RATIO 0.8 (1.1-1.5); ALKALINE PHOSPHATASE 63 IU/L (46-116); ANION GAP 9 (8-16); ASPARTATE AMINO TRANSFERASE 10 U/L (10-37); BILIRUBIN,TOTAL 0.2 MG/DL (0.1-1.0); BLOOD UREA NITROGEN 57 MG/DL (7-18); BUN/CREATININE RATIO 8.1 (6.6-38.0); CALCIUM 9.2 MG/DL (8.5-10.1); CHLORIDE 106 MMOL/L (99-107); CREATININE 7.03 MG/DL (0.40-0.90); GLUCOSE 98 MG/DL (70-104); MAGNESIUM 1.9 MG/DL (1.5-2.4); POTASSIUM 5.5 MMOL/L (3.5-5.1); SODIUM 140 MMOL/L (135-145); TOTAL PROTEIN 6.4 G/DL (6.4-8.2); eGFR 7 ML/MIN
[2019-06-08] MEDS: heparin, porcine 5000 units/ml vial SQ SCH ×2 (08:00→19:52)
[2019-06-08] MEDS ORDERED: heparin 1,000 units/ml 10ml inj HE ONE ×2 (08:00)
[2019-06-08] MEDS ORDERED: epoetin 20,000 units/ml inj IV ONE (08:00)
[2019-06-08] MEDS ORDERED: heparin 1,000unit/ml 10ml vial 10 ML IV ONE (08:00)
[2019-06-08] MEDS: calcium acetate 667mg (PhosLO) capsule PO SCH ×3 (08:05→19:56)
[2019-06-08] MEDS: folic acid/vitamin B complex w/vitamin C 0.8mg tablet PO SCH (08:05)
[2019-06-08] MEDS: docusate sod 100mg capsule PO SCH ×2 (08:05→19:56)
[2019-06-08] MEDS: labetalol 100mg tablet PO SCH ×3 (08:05→19:56)
[2019-06-08] MEDS: pantoprazole 40mg Tablet.DR PO SCH (08:05)
--- NOTE | 2019-06-08 08:29 | NUR ---
pt stated her IV was causing her pain. IV dc'ed and intact. Addendum: 06/08/19 at 0832 by Susie Ricardo - STUDENT TERRI Amended: Links added.
--- NOTE | 2019-06-08 08:59 | NUR ---
pt wanted to wait for new IV after shower.
--- NOTE | 2019-06-08 09:00 | NUR ---
will hang IV medications when new IV is inserted, after shower per pt request.
[2019-06-08] MEDS: nicotine 21mg patch - 24 hr TD SCH (09:41)
[2019-06-08] MEDS: HYDROcodone/acetaminophen 10/325mg tab PO PRN (12:06)
[2019-06-08] MEDS ORDERED: tuberculin, purif. prot. deriv. 5 units/0.1ml ID ONE (14:15)
[2019-06-08 14:35] VITALS: BP 173/95
[2019-06-08] MEDS: sodium ferric gluc complex inj 125 MG in normal saline 100ml IV soln 100 ML IV SCH (15:52)
[2019-06-08 18:00] VITALS: BP 203/100
--- NOTE | 2019-06-08 18:23 | NUR ---
Problems reprioritized. Patient report given, questions answered & plan of care reviewed with BENTON AMARO.
--- NOTE | 2019-06-08 18:23 | NUR ---
report given to SONDRA Crain. pt moustapha.
--- NOTE | 2019-06-08 18:26 | NUR ---
Student documentation: I have reviewed and agree with all interventions, assessments performed and documented by ELLIOTT GARCIA.
--- NOTE | 2019-06-08 18:26 | NUR ---
Student Medication Administration: For this medication-pass time frame, all medication were reviewed, dispensed, administered and documented per hospital policy by ELLIOTT GARCIA.
[2019-06-08] MEDS: amLODIPine 5mg tablet PO SCH (19:56)
[2019-06-08] MEDS: cloNIDine 0.1 mg tablet PO SCH (20:01)
[2019-06-08 22:00] VITALS: BP 184/96
[2019-06-08 22:30] VITALS: BP 170/96
[2019-06-08] MEDS ORDERED: hydrALAZINE 20mg/ml inj. IV PRN (22:30)
[2019-06-08 23:00] VITALS: BP 155/98
[2019-06-09 02:36] VITALS: BP_SYST 160; BP_SYST 184; BP_DIAS 93; BP_DIAS 96
[2019-06-09 06:00] VITALS: BP 162/89
[2019-06-09 06:53] LABS: BASOPHILS % (AUTO) 0.5 % (0-1); EOSINOPHILS # (AUTO) 0.3 X10'3 (0-0.9); EOSINOPHILS % (AUTO) 3.4 % (0-6); HEMATOCRIT 25.4 % (35.0-45.0); HEMOGLOBIN 8.4 g/dl (12.0-16.0); LYMPHOCYTES # (AUTO) 1.3 X10'3 (1.1-4.8); LYMPHOCYTES % (AUTO) 15.7 % (21-51); MEAN CORPUSCULAR HEMOGLOBIN 30.5 PG (27.0-31.0); MEAN CORPUSCULAR HGB CONC 32.8 g/dL (33.0-36.5); MEAN CORPUSCULAR VOLUME 92.8 FL (78-98); MEAN PLATELET VOLUME 8.2 FL (7.4-10.4); MONOCYTES # (AUTO) 0.6 X10'3 (0-0.9); MONOCYTES % (AUTO) 7.1 % (2-12); NEUTROPHILS # (AUTO) 5.9 X10'3 (1.8-7.7); NEUTROPHILS % (AUTO) 73.3 % (42-75); PLATELET COUNT 344 X10'3 (140-440); RED BLOOD COUNT 2.74 X10'6 (4.20-5.60); RED CELL DISTRIBUTION WIDTH 14.2 % (11.5-14.5); WHITE BLOOD COUNT 8.1 X10'3 (4.5-11.0)
[2019-06-09 07:14] LABS: ALANINE AMINOTRANSFERASE 25 U/L (12-78); ALBUMIN 2.9 G/DL (3.4-5.0); ALBUMIN/GLOBULIN RATIO 0.8 (1.1-1.5); ALKALINE PHOSPHATASE 68 IU/L (46-116); ANION GAP 10 (8-16); ASPARTATE AMINO TRANSFERASE 24 U/L (10-37); BILIRUBIN,TOTAL 0.2 MG/DL (0.1-1.0); BLOOD UREA NITROGEN 33 MG/DL (7-18); BUN/CREATININE RATIO 6.4 (6.6-38.0); CALCIUM 9.3 MG/DL (8.5-10.1); CHLORIDE 105 MMOL/L (99-107); CREATININE 5.16 MG/DL (0.40-0.90); GLUCOSE 90 MG/DL (70-104); MAGNESIUM 2.1 MG/DL (1.5-2.4); PHOSPHORUS 5.6 MG/DL (2.3-4.5); POTASSIUM 5.1 MMOL/L (3.5-5.1); SODIUM 141 MMOL/L (135-145); TOTAL CARBON DIOXIDE 25.8 MMOL/L (24-32); TOTAL PROTEIN 6.7 G/DL (6.4-8.2); eGFR 9 ML/MIN
[2019-06-09] MEDS: docusate sod 100mg capsule PO SCH ×2 (08:00→20:54)
[2019-06-09] MEDS: calcium acetate 667mg (PhosLO) capsule PO SCH ×3 (08:56→18:47)
[2019-06-09] MEDS: cloNIDine 0.1 mg tablet PO SCH ×3 (08:56→20:55)
[2019-06-09] MEDS: labetalol 100mg tablet PO SCH ×3 (08:58→20:55)
[2019-06-09] MEDS: folic acid/vitamin B complex w/vitamin C 0.8mg tablet PO SCH (08:59)
[2019-06-09] MEDS: heparin, porcine 5000 units/ml vial SQ SCH ×2 (09:00→20:55)
[2019-06-09] MEDS: nicotine 21mg patch - 24 hr TD SCH (09:01)
[2019-06-09] MEDS: pantoprazole 40mg Tablet.DR PO SCH (09:10)
[2019-06-09] MEDS: sodium ferric gluc complex inj 125 MG in normal saline 100ml IV soln 100 ML IV SCH (09:10)
[2019-06-09 10:00] VITALS: BP 160/107
[2019-06-09 18:40] VITALS: BP 167/93
[2019-06-09] MEDS: amLODIPine 5mg tablet PO SCH (20:55)
[2019-06-09 23:00] VITALS: BP 165/90
[2019-06-10] MEDS: HYDROcodone/acetaminophen 10/325mg tab PO PRN (02:59)
[2019-06-10 06:00] VITALS: BP 150/84
--- NOTE | 2019-06-10 06:33 | NUR ---
Problems reprioritized. Patient report given, questions answered & plan of care reviewed with BRIAN. Addendum: 06/10/19 at 0633 by Harmeet Law RN Amended: Links added.
--- NOTE | 2019-06-10 06:40 | NUR ---
report received from SONDRA Simeon.
[2019-06-10 07:01] LABS: BASOPHILS # (AUTO) 0.1 X10'3 (0-0.2); BASOPHILS % (AUTO) 0.7 % (0-1); EOSINOPHILS # (AUTO) 0.4 X10'3 (0-0.9); EOSINOPHILS % (AUTO) 4.1 % (0-6); HEMATOCRIT 24.1 % (35.0-45.0); HEMOGLOBIN 8.1 g/dl (12.0-16.0); LYMPHOCYTES # (AUTO) 1.5 X10'3 (1.1-4.8); MEAN CORPUSCULAR HEMOGLOBIN 31.3 PG (27.0-31.0); MEAN CORPUSCULAR HGB CONC 33.5 g/dL (33.0-36.5); MEAN CORPUSCULAR VOLUME 93.5 FL (78-98); MEAN PLATELET VOLUME 8.2 FL (7.4-10.4); MONOCYTES # (AUTO) 0.8 X10'3 (0-0.9); MONOCYTES % (AUTO) 8.2 % (2-12); NEUTROPHILS # (AUTO) 6.6 X10'3 (1.8-7.7); PLATELET COUNT 346 X10'3 (140-440); RED BLOOD COUNT 2.57 X10'6 (4.20-5.60); RED CELL DISTRIBUTION WIDTH 13.7 % (11.5-14.5); WHITE BLOOD COUNT 9.3 X10'3 (4.5-11.0)
[2019-06-10 07:19] LABS: ALANINE AMINOTRANSFERASE 24 U/L (12-78); ALBUMIN 2.9 G/DL (3.4-5.0); ALBUMIN/GLOBULIN RATIO 0.8 (1.1-1.5); ALKALINE PHOSPHATASE 74 IU/L (46-116); ANION GAP 13 (8-16); ASPARTATE AMINO TRANSFERASE 17 U/L (10-37); BILIRUBIN,TOTAL 0.2 MG/DL (0.1-1.0); BLOOD UREA NITROGEN 59 MG/DL (7-18); BUN/CREATININE RATIO 8.2 (6.6-38.0); CALCIUM 9.3 MG/DL (8.5-10.1); CHLORIDE 102 MMOL/L (99-107); CREATININE 7.23 MG/DL (0.40-0.90); GLUCOSE 94 MG/DL (70-104); MAGNESIUM 2.5 MG/DL (1.5-2.4); PHOSPHORUS 6.8 MG/DL (2.3-4.5); POTASSIUM 5.5 MMOL/L (3.5-5.1); SODIUM 137 MMOL/L (135-145); TOTAL CARBON DIOXIDE 21.6 MMOL/L (24-32); TOTAL PROTEIN 6.7 G/DL (6.4-8.2); eGFR 6 ML/MIN
[2019-06-10] MEDS: folic acid/vitamin B complex w/vitamin C 0.8mg tablet PO SCH (07:50)
[2019-06-10] MEDS: docusate sod 100mg capsule PO SCH ×2 (07:50→19:45)
[2019-06-10] MEDS: cloNIDine 0.1 mg tablet PO SCH ×3 (07:50→19:48)
[2019-06-10] MEDS: pantoprazole 40mg Tablet.DR PO SCH (07:50)
[2019-06-10] MEDS: calcium acetate 667mg (PhosLO) capsule PO SCH ×3 (07:50→19:45)
[2019-06-10] MEDS: heparin, porcine 5000 units/ml vial SQ SCH ×2 (07:51→19:52)
[2019-06-10] MEDS: labetalol 100mg tablet PO SCH ×3 (07:51→19:48)
[2019-06-10] MEDS ORDERED: epoetin 20,000 units/ml inj IV ONE (08:00)
[2019-06-10] MEDS ORDERED: normal saline 1000ml 250 ML IV PRN (08:00)
[2019-06-10] MEDS ORDERED: heparin 1,000unit/ml 10ml vial 10 ML IV ONE (08:00)
[2019-06-10] MEDS ORDERED: heparin 1,000 units/ml 10ml inj HE ONE ×2 (08:00)
[2019-06-10] MEDS: sodium ferric gluc complex inj 125 MG in normal saline 100ml IV soln 100 ML IV SCH (09:29)
[2019-06-10] MEDS: nicotine 21mg patch - 24 hr TD SCH (09:29)
[2019-06-10 10:00] VITALS: BP 137/82
[2019-06-10 18:00] VITALS: BP 162/83
--- NOTE | 2019-06-10 18:19 | NUR ---
Patient in room ORTHO 4021. I have received report from SONDRA Capellan and had the opportunity to ask questions and assume patient care. Patient is sitting up in bed, dialysis nurse is starting dialysis. Patient is A&O x4, BOWLING and is appropriate.
--- NOTE | 2019-06-10 18:19 | NUR ---
Report given to SONDRA Groves. pt moustapha.
[2019-06-10] MEDS: amLODIPine 5mg tablet PO SCH (19:48)
[2019-06-10] MEDS ORDERED: LABE100T5 PO (20:41)
[2019-06-10] MEDS ORDERED: NICO-687 TD (20:41)
[2019-06-10 22:51] VITALS: BP 183/94
[2019-06-11 06:00] VITALS: BP 146/86
--- NOTE | 2019-06-11 06:18 | NUR ---
Problems reprioritized. Patient report given, questions answered & plan of care reviewed with SONDRA Capellan.
[2019-06-11 06:20] LABS: BASOPHILS # (AUTO) 0.1 X10'3 (0-0.2); BASOPHILS % (AUTO) 0.9 % (0-1); EOSINOPHILS # (AUTO) 0.3 X10'3 (0-0.9); EOSINOPHILS % (AUTO) 3.6 % (0-6); HEMATOCRIT 26.5 % (35.0-45.0); HEMOGLOBIN 8.8 g/dl (12.0-16.0); LYMPHOCYTES # (AUTO) 1.2 X10'3 (1.1-4.8); MEAN CORPUSCULAR HEMOGLOBIN 31.1 PG (27.0-31.0); MEAN CORPUSCULAR HGB CONC 33.4 g/dL (33.0-36.5); MEAN CORPUSCULAR VOLUME 93.2 FL (78-98); MEAN PLATELET VOLUME 7.9 FL (7.4-10.4); MONOCYTES # (AUTO) 0.8 X10'3 (0-0.9); MONOCYTES % (AUTO) 9.6 % (2-12); NEUTROPHILS # (AUTO) 5.6 X10'3 (1.8-7.7); NEUTROPHILS % (AUTO) 70.9 % (42-75); PLATELET COUNT 361 X10'3 (140-440); RED BLOOD COUNT 2.84 X10'6 (4.20-5.60); WHITE BLOOD COUNT 7.8 X10'3 (4.5-11.0)
--- NOTE | 2019-06-11 06:23 | NUR ---
report received from SONDRA Groves.
[2019-06-11 06:56] LABS: ALANINE AMINOTRANSFERASE 25 U/L (12-78); ALBUMIN 3.1 G/DL (3.4-5.0); ALBUMIN/GLOBULIN RATIO 0.7 (1.1-1.5); ALKALINE PHOSPHATASE 80 IU/L (46-116); ANION GAP 10 (8-16); ASPARTATE AMINO TRANSFERASE 16 U/L (10-37); BILIRUBIN,TOTAL 0.2 MG/DL (0.1-1.0); BLOOD UREA NITROGEN 31 MG/DL (7-18); BUN/CREATININE RATIO 6.4 (6.6-38.0); CALCIUM 10.6 MG/DL (8.5-10.1); CHLORIDE 102 MMOL/L (99-107); CREATININE 4.84 MG/DL (0.40-0.90); GLUCOSE 96 MG/DL (70-104); MAGNESIUM 2.4 MG/DL (1.5-2.4); SODIUM 138 MMOL/L (135-145); TOTAL PROTEIN 7.5 G/DL (6.4-8.2); eGFR 10 ML/MIN
[2019-06-11] MEDS: docusate sod 100mg capsule PO SCH (07:23)
[2019-06-11] MEDS: calcium acetate 667mg (PhosLO) capsule PO SCH (07:24)
[2019-06-11] MEDS: folic acid/vitamin B complex w/vitamin C 0.8mg tablet PO SCH (07:24)
[2019-06-11] MEDS: pantoprazole 40mg Tablet.DR PO SCH (07:24)
[2019-06-11] MEDS: labetalol 100mg tablet PO SCH (07:24)
[2019-06-11] MEDS: heparin, porcine 5000 units/ml vial SQ SCH (07:26)
[2019-06-11] MEDS: cloNIDine 0.1 mg tablet PO SCH (07:30)
[2019-06-11] MEDS: nicotine 21mg patch - 24 hr TD SCH (08:00)
--- NOTE | 2019-06-11 08:05 | NUR ---
pt would like to wait for her nicotine patch until after she has her shower.
[2019-06-11 08:35] LABS: HBSAG SCREEN Negative (Negative)
[2019-06-11 10:00] VITALS: BP 134/68
--- NOTE | 2019-06-11 11:20 | NUR ---
central line dressing changed. Addendum: 06/11/19 at 1122 by Susie Ricardo - STUDENT TERRI disregard upper note, changed TDC dressing.
--- NOTE | 2019-06-11 11:29 | NUR ---
Patient was discharged iv and and tele was removed from patient. patient left with family. appointment was made with [facility], patient will go on Monday. medications were called in to [facility] . Patient will picker/puller medication
[2019-07-22] MEDS ORDERED: LABE300T2 PO (15:40)
[2019-07-22] MEDS ORDERED: FOLI0.8T39 PO (15:40)
[2019-07-22] MEDS ORDERED: LOSA50TA64 PO (15:40)
[2019-07-22] MEDS ORDERED: PHO667C PO (15:45)
[2019-07-22] MEDS ORDERED: LOSA50TA3 PO (15:47)
[2019-07-22] MEDS ORDERED: AMLO2.5T2 PO (15:48)
== END 2019-06-11 10:15 | disposition home or self-care (01) | DRG 469 ==
LOC: ER 12:18 → CICU 2S 16:35 → ORTHO 4S 06-06 16:56 → CMPBEDREQ 06-10 18:04
PROC: 0JH63XZ Insertion of Tunneled Vascular Access Device into Chest Subcutaneous Tissue and Fascia, Percutaneous Approach (ICD-10-PCS; principal; 2019-06-05)
PROC: 02H633Z Insertion of Infusion Device into Right Atrium, Percutaneous Approach (ICD-10-PCS; 2019-06-05)
PROC: B244ZZZ Ultrasonography of Right Heart (ICD-10-PCS; 2019-06-05)
PROC: 30233N1 Transfusion of Nonautologous Red Blood Cells into Peripheral Vein, Percutaneous Approach (ICD-10-PCS; 2019-06-05)
PROC: 5A1D70Z Performance of Urinary Filtration, Intermittent, Less than 6 Hours Per Day (ICD-10-PCS; 2019-06-05)
PROC: 5A1D70Z Performance of Urinary Filtration, Intermittent, Less than 6 Hours Per Day (ICD-10-PCS; 2019-06-06)
PROC: 5A1D70Z Performance of Urinary Filtration, Intermittent, Less than 6 Hours Per Day (ICD-10-PCS; 2019-06-08)
PROC: 5A1D70Z Performance of Urinary Filtration, Intermittent, Less than 6 Hours Per Day (ICD-10-PCS; 2019-06-10)
DX: N17.9 Acute kidney failure, unspecified (principal); I73.1 Thromboangiitis obliterans [Buerger's disease]; E87.5 Hyperkalemia; K57.12 Diverticulitis of small intestine without perforation or abscess without bleeding; R18.8 Other ascites; I80.8 Phlebitis and thrombophlebitis of other sites; D50.9 Iron deficiency anemia, unspecified; N92.0 Excessive and frequent menstruation with regular cycle; K21.9 Gastro-esophageal reflux disease without esophagitis; D25.9 Leiomyoma of uterus, unspecified; K52.9 Noninfective gastroenteritis and colitis, unspecified; N83.9 Noninflammatory disorder of ovary, fallopian tube and broad ligament, unspecified; F17.220 Nicotine dependence, chewing tobacco, uncomplicated; Z99.2 Dependence on renal dialysis; Z88.2 Allergy status to sulfonamides; Z98.891 History of uterine scar from previous surgery; Z79.899 Other long term (current) drug therapy
CPT/HCPCS: 36415; 36558; 71045; 74176; 76856; 76937; 77001; 80053; 80069; 81001; 81025; 82550; 82570; 82948; 83520; 83540; 83550; 83605; 83690; 83735; 83874; 83935; 84100; 84300; 85025; 85027; 85610; 85730; 86160; 86304; 86885; 86900; 86901; 86920; 87081; 87088; 87207; 87340; 93005; 93971; 96365; 96375; 99152; 99153; 99285; A9270; C1750; C1894; C9113; G0257; G0378; J0360; J0610; J0690; J1644; J1815; J2150; J2250; J2916; J3010; J3490; P9016; Q4081; Z7610

== ENCOUNTER 2019-07-25 08:51 | Day surgery (SDC) | payer MEDICAID ==
[2019-07-22 16:01] LABS: BASOPHILS # (AUTO) 0.1 X10'3 (0-0.2); BASOPHILS % (AUTO) 1.1 % (0-1); EOSINOPHILS # (AUTO) 0.3 X10'3 (0-0.9); EOSINOPHILS % (AUTO) 4.5 % (0-6); LYMPHOCYTES # (AUTO) 1.2 X10'3 (1.1-4.8); LYMPHOCYTES % (AUTO) 17.7 % (21-51); MEAN CORPUSCULAR HEMOGLOBIN 32.1 PG (27.0-31.0); MEAN CORPUSCULAR HGB CONC 32.5 g/dL (33.0-36.5); MEAN CORPUSCULAR VOLUME 98.8 FL (78-98); MEAN PLATELET VOLUME 7.4 FL (7.4-10.4); MONOCYTES # (AUTO) 0.4 X10'3 (0-0.9); MONOCYTES % (AUTO) 6.1 % (2-12); NEUTROPHILS # (AUTO) 4.8 X10'3 (1.8-7.7); NEUTROPHILS % (AUTO) 70.6 % (42-75); PRE OP HEMATOCRIT 36.1 % (35.0-45.0); PRE OP HEMOGLOBIN 11.7 g/dL (12.0-16.0); PRE OP PLATELET COUNT 310 X10'3 (140-440); RED BLOOD COUNT 3.66 X10'6 (4.20-5.60); RED CELL DISTRIBUTION WIDTH 19.3 % (11.5-14.5)
[2019-07-22 16:17] LABS: CLARITY,URINE CLEAR (Clear); COLOR,URINE YELLOW (Yellow); GLUCOSE, URINE NEGATIVE (Neg); KETONES,URINE NEGATIVE (Neg); LEUKOCYTE ESTERASE ,URINE NEGATIVE (Neg); NITRITES, URINE NEGATIVE (Neg); OCCULT BLOOD,URINE TRACE-INTACT (Neg); PROTEIN,URINE >=300 mg/dl (Neg); UROBILINOGEN,URINE 0.2 E.U/dL (0.2-1.0)
[2019-07-22 16:21] LABS: UA COLLECTION TYPE CLN CATCH MIDSTREAM
[2019-07-22 16:21] LABS: ALBUMIN 3.7 G/DL (3.4-5.0); ALBUMIN/GLOBULIN RATIO 0.9 (1.1-1.5); ALKALINE PHOSPHATASE 86 IU/L (46-116); BLOOD UREA NITROGEN 68 MG/DL (7-18); CALCIUM 9.1 MG/DL (8.5-10.1); CHLORIDE 102 MMOL/L (99-107); CREATININE 9.68 MG/DL (0.40-0.90); PRE OP ALT 16 U/L (30-65); PRE OP ANION GAP 15 (8-16); PRE OP AST 8 U/L (10-37); PRE OP BILIRUB, TOTAL 0.4 MG/DL (0.0-1.0); PRE OP GLUCOSE 93 MG/DL (70-104); PRE OP SODIUM 135 MMOL/L (135-145); TOTAL CARBON DIOXIDE 17.7 MMOL/L (24-32); TOTAL PROTEIN 7.6 G/DL (6.4-8.2); eGFR 4 ML/MIN
[2019-07-22 16:23] LABS: PRE OP PARTIAL THROMB. TIME 25 SECONDS (22-32); PRE OP PROTIME 9.5 SECONDS (9.0-12.0)
[2019-07-22 16:32] LABS: BACTERIA,URINE FEW /HPF (Neg); RBC,URINE 0-2 /HPF (0-2); WBC,URINE 0-4 /HPF (0-4)
[2019-07-22 16:33] LABS: RENAL CELLS, URINE FEW /HPF; SQUAMOUS EPITHELIAL CELL,UR MANY /LPF (FEW); TRANSITIONAL EPI CELLS,URINE FEW /HPF
[2019-07-22 16:34] LABS: HCG SERUM QL NEGATIVE; PRE OP POTASSIUM 6.6 MMOL/L (3.4-5.1)
[2019-07-22 16:36] LABS: PRE OP INR < 0.9 INR
[2019-07-22 16:54] LABS: PLATELET ESTIMATE NORMAL
[2019-07-22 16:55] LABS: ANISOCYTOSIS 1+; POIKILOCYTOSIS 1+; POLYCHROMASIA 1+
[2019-07-22 16:56] LABS: BURR CELLS 1+; ELLIPTOCYTES FEW; SCHISTOCYTES 1+; TEAR DROP CELLS FEW
[2019-07-22 16:57] LABS: ROULEAUX 1+
[~2019-07-25] VITALS: Ht 170.2 cm; Wt 81.6 kg
[~2019-07-25 08:51] MED LIST: AMLO2.5T2 PO; DOCUMENT DATE & TIME OF BETA-BLOCKER PO ONE; FOLI0.8T39 PO; LABE300T2 PO; LOSA50TA3 PO; PHO667C PO; ceFOXitin 2 GM ADDvantage bag 100 ML IV ONE; famotidine 20mg tablet PO ONE; normal saline 1000ml 1,000 ML IV SCH
[2019-07-25] MEDS ORDERED: LIDOcaine 1% (10mg/ml) 2ml vial ONE (10:07)
[2019-07-25] MEDS ORDERED: ringers solution, lacted 1,000 ML IV SCH (11:12)
[2019-07-25] MEDS ORDERED: morphine 4 MG/ML inj SYRINge IV PRN ×2 (11:15)
[2019-07-25] MEDS ORDERED: proCHLORperazine 10 MG/2 ml inj IV PRN (11:15)
[2019-07-25] MEDS ORDERED: ondansetron/PF 4mg/2ml inj IV PRN (11:15)
[2019-07-25] MEDS ORDERED: meperidine/PF 25mg/ml syringe IV PRN ×3 (11:15)
[2019-07-25 11:20] LABS: ISTAT CREATININE 7.6 mg/dL (0.6-1.1); ISTAT IONIZED CALCIUM 1.17 mmol/L (1.03-1.32); POC BUN/CREATININE RATIO 4.9 (6.6-38.0)
[2019-07-25 11:41] LABS: ISTAT K 6.7 mmol/L (3.5-5.1)
--- NOTE | 2019-07-25 12:45 | NUR ---
PT WAS ADMITTED FOR ELECTIVE SURGERY TODAY, I-STAT PREFORMED, K+ CAME BACK AT 6.9, DISCUSSED W/DR MUNROE AND DR RICHARD, DECISION MADE TO SEND PT OVER TO [facility] FOR HEMODIALYSIS TODAY AND RESCHEDULE SURGERY FOR ANOTHER DAY, 20 GAUGE PIV TO RIGHT HAND D/CD, PT DRESSED AND LEFT HOSPITAL W/HER MOTHER TO GO TO THE DIALYSIS CENTER. Addendum: 07/25/19 at 1333 by Rosalinda Kapoor RN Amended: Links added.
== END 2019-07-25 12:45 | disposition home or self-care (01) ==
LOC: PAS 08:51
PROVIDERS: ATTEND Obstetrics & Gynecology
DX: R19.00 Intra-abdominal and pelvic swelling, mass and lump, unspecified site (principal); Z53.8 Procedure and treatment not carried out for other reasons; I10 Essential (primary) hypertension; Z99.2 Dependence on renal dialysis; Z79.899 Other long term (current) drug therapy; F17.210 Nicotine dependence, cigarettes, uncomplicated; Z98.890 Other specified postprocedural states; Z88.2 Allergy status to sulfonamides; Z79.01 Long term (current) use of anticoagulants
CPT/HCPCS: 36415; 80047; 80053; 81001; 84703; 85025; 85610; 85730; 86885; 86900; 86901; 93005; J0694; J2001; J7030; J7120

== ENCOUNTER 2019-09-06 05:34 | Day surgery (SDC) | payer MEDICAID ==
[2019-08-19 11:14] LABS: BASOPHILS # (AUTO) 0.1 X10'3 (0-0.2); EOSINOPHILS # (AUTO) 0.4 X10'3 (0-0.9); EOSINOPHILS % (AUTO) 5.3 % (0-6); LYMPHOCYTES # (AUTO) 0.9 X10'3 (1.1-4.8); LYMPHOCYTES % (AUTO) 11.6 % (21-51); MEAN CORPUSCULAR HEMOGLOBIN 31.6 PG (27.0-31.0); MEAN CORPUSCULAR HGB CONC 32.8 g/dL (33.0-36.5); MEAN CORPUSCULAR VOLUME 96.4 FL (78-98); MEAN PLATELET VOLUME 7.5 FL (7.4-10.4); MONOCYTES # (AUTO) 0.5 X10'3 (0-0.9); MONOCYTES % (AUTO) 6.7 % (2-12); NEUTROPHILS % (AUTO) 75.4 % (42-75); PRE OP HEMOGLOBIN 11.5 g/dL (12.0-16.0); PRE OP PLATELET COUNT 393 X10'3 (140-440); RED BLOOD COUNT 3.63 X10'6 (4.20-5.60); RED CELL DISTRIBUTION WIDTH 17.1 % (11.5-14.5)
[2019-08-19 11:15] LABS: CLARITY,URINE SLIGHTLY CLOUDY (Clear); COLOR,URINE STRAW (Yellow); GLUCOSE, URINE 100 mg/dl (Neg); KETONES,URINE NEGATIVE (Neg); LEUKOCYTE ESTERASE ,URINE NEGATIVE (Neg); NITRITES, URINE NEGATIVE (Neg); OCCULT BLOOD,URINE TRACE-INTACT (Neg); PH,URINE 7.5 (4.8-8.0); PROTEIN,URINE 100 mg/dl (Neg); UROBILINOGEN,URINE 0.2 E.U/dL (0.2-1.0)
[2019-08-19 11:21] LABS: UA COLLECTION TYPE CLN CATCH MIDSTREAM
[2019-08-19 11:22] LABS: HYALINE CASTS 0-3 /LPF (NEGATIVE); MUCUS STRANDS FEW /LPF (Neg); SQUAMOUS EPITHELIAL CELL,UR MODERATE /LPF (FEW)
[2019-08-19 11:23] LABS: BACTERIA,URINE FEW /HPF (Neg); RBC,URINE 0-2 /HPF (0-2); WBC,URINE 0-4 /HPF (0-4)
[2019-08-19 11:26] LABS: PRE OP INR 0.9 INR; PRE OP PROTIME 9.8 SECONDS (9.0-12.0)
[2019-08-19 11:27] LABS: ALBUMIN 3.6 G/DL (3.4-5.0); ALBUMIN/GLOBULIN RATIO 0.9 (1.1-1.5); ALKALINE PHOSPHATASE 103 IU/L (46-116); BLOOD UREA NITROGEN 74 MG/DL (7-18); BUN/CREATININE RATIO 7.7 (6.6-38.0); CALCIUM 9.1 MG/DL (8.5-10.1); CHLORIDE 102 MMOL/L (99-107); CREATININE 9.67 MG/DL (0.40-0.90); PRE OP ALT 20 U/L (30-65); PRE OP ANION GAP 13 (8-16); PRE OP AST 10 U/L (10-37); PRE OP BILIRUB, TOTAL 0.5 MG/DL (0.0-1.0); PRE OP GLUCOSE 86 MG/DL (70-104); PRE OP SODIUM 136 MMOL/L (135-145); TOTAL CARBON DIOXIDE 21.1 MMOL/L (24-32); TOTAL PROTEIN 7.6 G/DL (6.4-8.2); eGFR 5 ML/MIN
[2019-08-19 11:28] LABS: HCG SERUM QL NEGATIVE
[2019-08-19 12:03] LABS: PRE OP POTASSIUM 6.6 MMOL/L (3.4-5.1)
[~2019-09-06] VITALS: Ht 170.2 cm; Wt 81.6 kg
[2019-09-06] VITALS (9 sets, daily range): BP systolic 112–131; BP diastolic 59–90
[~2019-09-06 05:34] MED LIST changes: -ceFOXitin 2 GM ADDvantage bag 100 ML IV ONE; +ceFOXitin 2 GM ADDvantage bag 50 ML IV ONE; +ceFOXitin sod/dextrose 2g/50ml 50 ML IV ONE; +famotidine 10mg tablet PO ONE; -famotidine 20mg tablet PO ONE; -normal saline 1000ml 1,000 ML IV SCH; +ringers solution, lacted 1,000 ML IV SCH
[2019-09-06] MEDS ORDERED: LIDOcaine 1% (10mg/ml) 2ml vial ONE (05:45)
[2019-09-06] MEDS ORDERED: BUPIVAcaine/PF 2.5 mg/ml (0.25%) 30ml vial ONE ×2 (06:48→07:48)
[2019-09-06 06:53] LABS: BASOPHILS # (AUTO) 0.1 X10'3 (0-0.2); BASOPHILS % (AUTO) 1.1 % (0-1); EOSINOPHILS # (AUTO) 0.3 X10'3 (0-0.9); EOSINOPHILS % (AUTO) 3.8 % (0-6); LYMPHOCYTES % (AUTO) 11.9 % (21-51); MEAN CORPUSCULAR HEMOGLOBIN 31.2 PG (27.0-31.0); MEAN CORPUSCULAR HGB CONC 32.3 g/dL (33.0-36.5); MEAN CORPUSCULAR VOLUME 96.8 FL (78-98); MEAN PLATELET VOLUME 7.5 FL (7.4-10.4); MONOCYTES # (AUTO) 0.4 X10'3 (0-0.9); MONOCYTES % (AUTO) 5.4 % (2-12); NEUTROPHILS # (AUTO) 6.3 X10'3 (1.8-7.7); NEUTROPHILS % (AUTO) 77.8 % (42-75); PRE OP HEMATOCRIT 37.2 % (35.0-45.0); PRE OP PLATELET COUNT 259 X10'3 (140-440); RED BLOOD COUNT 3.84 X10'6 (4.20-5.60); RED CELL DISTRIBUTION WIDTH 17.8 % (11.5-14.5)
[2019-09-06] MEDS ORDERED: ondansetron/PF 4mg/2ml inj ONE ×2 (07:00→08:41)
[2019-09-06] MEDS ORDERED: dexamethasone sod phosphate 4mg/ml inj. ONE (07:00)
[2019-09-06] MEDS ORDERED: sevoflurane 250ml liquid IH ONE (07:00)
[2019-09-06 07:03] LABS: ALBUMIN 3.9 G/DL (3.4-5.0); ALBUMIN/GLOBULIN RATIO 1.1 (1.1-1.5); ALKALINE PHOSPHATASE 91 IU/L (46-116); BLOOD UREA NITROGEN 48 MG/DL (7-18); BUN/CREATININE RATIO 5.8 (6.6-38.0); CALCIUM 9.5 MG/DL (8.5-10.1); CHLORIDE 101 MMOL/L (99-107); CREATININE 8.24 MG/DL (0.40-0.90); PRE OP ALT 28 U/L (30-65); PRE OP ANION GAP 9 (8-16); PRE OP AST 13 U/L (10-37); PRE OP BILIRUB, TOTAL 0.4 MG/DL (0.0-1.0); PRE OP GLUCOSE 93 MG/DL (70-104); PRE OP POTASSIUM 5.2 MMOL/L (3.4-5.1); PRE OP SODIUM 137 MMOL/L (135-145); TOTAL CARBON DIOXIDE 27.2 MMOL/L (24-32); TOTAL PROTEIN 7.4 G/DL (6.4-8.2); eGFR 5 ML/MIN
[2019-09-06 07:05] LABS: HCG SERUM QL NEGATIVE
[2019-09-06] MEDS ORDERED: fentaNYL/PF 50MCG/1 ML 2ML syringe ONE ×2 (07:17)
[2019-09-06] MEDS ORDERED: midazolam 2 mg/2 ml injection ONE (07:17)
[2019-09-06] MEDS ORDERED: etomidate 2mg/ml inj. ONE (07:25)
[2019-09-06] MEDS ORDERED: rocuronium 10mg/ml inj IV ONE (07:25)
[2019-09-06] MEDS ORDERED: labetalol 20mg/4ml (5mg/ml) syringe IV ONE (07:29)
[2019-09-06] MEDS ORDERED: hydrALAZINE 20mg/ml inj. IV ONE ×2 (07:49→07:59)
[2019-09-06] MEDS ORDERED: glycopyrrolate 0.2mg/ml inj ONE (08:04)
[2019-09-06] MEDS ORDERED: neostigmine methylsulfate 1 MG/ML 10ml vial ONE (08:04)
--- NOTE | 2019-09-06 08:20 | NUR ---
ADMITTED TO PACU FROM OR ACCOMPANIED BY ANESTHESIA. INTIAL PHYSICAL ASSESSMENT DONE AND RECORDED. REPORT RECEIVED FROM ANESTHESIA.
[2019-09-06] MEDS ORDERED: ringers solution, lacted 1,000 ML IV SCH (08:47)
[2019-09-06] MEDS ORDERED: ondansetron/PF 4mg/2ml inj IV PRN (08:50)
[2019-09-06] MEDS ORDERED: morphine 4 MG/ML inj SYRINge IV PRN ×2 (08:50)
[2019-09-06] MEDS ORDERED: fentaNYL/PF 50MCG/1 ML 2ML syringe IV PRN ×2 (08:50)
[2019-09-06] MEDS ORDERED: labetalol 20mg/4ml (5mg/ml) syringe IV PRN (08:50)
[2019-09-06] MEDS ORDERED: enalaprilat dihydrate 2.5mg/2ml vial IV PRN (08:50)
[2019-09-06] MEDS ORDERED: HYDROcodone/acetaminophen 10/325mg tab PO ONE (09:25)
--- NOTE | 2019-09-06 09:50 | NUR ---
DISCHARGE CRITERIA MET, DISCHARGE INSTRUCTIONS GIVEN, DEMONSTRATES VERBAL UNDERSTANDING. DISCHARGED HOME IN GOOD CONDITION. MEDICATED FOR PAIN PRIOR TO DISCHARGE
== END 2019-09-06 09:50 | disposition home or self-care (01) ==
LOC: PAS 05:34
PROVIDERS: ATTEND Obstetrics & Gynecology
DX: R19.00 Intra-abdominal and pelvic swelling, mass and lump, unspecified site (principal); N83.01 Follicular cyst of right ovary; N83.11 Corpus luteum cyst of right ovary; I10 Essential (primary) hypertension; N17.9 Acute kidney failure, unspecified; E66.9 Obesity, unspecified; F17.210 Nicotine dependence, cigarettes, uncomplicated; Z98.890 Other specified postprocedural states; Z88.2 Allergy status to sulfonamides; Z79.899 Other long term (current) drug therapy; Z68.27 Body mass index [BMI] 27.0-27.9, adult; Z99.2 Dependence on renal dialysis
CPT/HCPCS: 36415; 58661; 80053; 81001; 84703; 85025; 85610; 85730; 86885; 86900; 86901; J0360; J0694; J1100; J2001; J2250; J2405; J2710; J3010; J3490; J7120; A4618

== ENCOUNTER 2024-06-30 00:59 | Inpatient (IN) | payer MEDICARE, BC, MEDICAID ==
[2024-06-30] VITALS (15 sets, daily range): BP systolic 122–173; BP diastolic 77–102; PULSE 73–84; RESP 16–23; TEMP 97.9–98.4; O2SAT 95–98
[~2024-06-30] VITALS: Ht 170.2 cm; Wt 76.9 kg
[~2024-06-30 00:59] MED LIST changes: -DOCUMENT DATE & TIME OF BETA-BLOCKER PO ONE; -LABE300T2 PO; +LABE300T4 PO; +LOSA-416 PO; -LOSA50TA3 PO; -ceFOXitin 2 GM ADDvantage bag 50 ML IV ONE; -ceFOXitin sod/dextrose 2g/50ml 50 ML IV ONE; -famotidine 10mg tablet PO ONE; -ringers solution, lacted 1,000 ML IV SCH
[2024-06-30 01:27] LABS: BASOPHILS % (AUTO) 0.4 % (0-1); EOSINOPHILS # (AUTO) 0.1 X10'3 (0-0.9); EOSINOPHILS % (AUTO) 1.5 % (0-6); HEMATOCRIT 23.8 % (35.0-45.0); HEMOGLOBIN 7.5 g/dl (12.0-16.0); LYMPHOCYTES # (AUTO) 1.6 X10'3 (1.1-4.8); LYMPHOCYTES % (AUTO) 24.7 % (21-51); MEAN CORPUSCULAR HEMOGLOBIN 27.4 PG (27.0-31.0); MEAN CORPUSCULAR HGB CONC 31.7 g/dL (33.0-36.5); MEAN CORPUSCULAR VOLUME 86.5 FL (78-98); MEAN PLATELET VOLUME 7.9 FL (7.4-10.4); MONOCYTES # (AUTO) 0.4 X10'3 (0-0.9); MONOCYTES % (AUTO) 6.7 % (2-12); NEUTROPHILS # (AUTO) 4.2 X10'3 (1.8-7.7); NEUTROPHILS % (AUTO) 66.7 % (42-75); PLATELET COUNT 365 X10'3 (140-440); RED BLOOD COUNT 2.75 X10'6 (4.20-5.60); RED CELL DISTRIBUTION WIDTH 15.2 % (11.5-14.5); WHITE BLOOD COUNT 6.3 X10'3 (4.5-11.0)
[2024-06-30 01:39] LABS: ALANINE AMINOTRANSFERASE 27 U/L (12-78); ALBUMIN/GLOBULIN RATIO 0.6 (1.1-1.5); ALKALINE PHOSPHATASE 150 IU/L (46-116); ANION GAP 8 (8-16); ASPARTATE AMINO TRANSFERASE 22 U/L (10-37); BILIRUBIN,TOTAL 0.3 MG/DL (0.1-1.0); BLOOD UREA NITROGEN 41 MG/DL (7-18); BUN/CREATININE RATIO 7.4 (10.0-20.0); CHLORIDE 98 MMOL/L (99-107); CREATININE 5.54 MG/DL (0.40-0.90); GLUCOSE 88 MG/DL (70-104); SODIUM 133 MMOL/L (135-145); TOTAL CARBON DIOXIDE 27.5 MMOL/L (24-32); TOTAL PROTEIN 5.6 G/DL (6.4-8.2); eCRCL 13 ML/MIN; eGFR 8 ML/MIN
[2024-06-30 01:47] LABS: POTASSIUM 4.3 MMOL/L (3.5-5.1); PRO BRAIN NATRIURETIC PEPTIDE > 30000 PG/ML (0-125)
[2024-06-30 02:46] LABS: ANISOCYTOSIS 1+; PLATELET ESTIMATE NORMAL; POIKILOCYTOSIS FEW; TOTAL CELLS COUNTED 100
[2024-06-30] MEDS: hydrALAZINE 20mg/ml inj. IV ONE ×2 (04:20→07:56)
[2024-06-30] MEDS: furosemide 10 MG/1 ML 10ml inj IV ONE (04:21)
[2024-06-30] MEDS ORDERED: acetaminophen 325mg tablet PO PRN (06:15)
[2024-06-30] MEDS ORDERED: magnesium hydroxide 30ml (MOM) UD suspension PO PRN (06:15)
[2024-06-30] MEDS ORDERED: potassium Cl 20 mEq SR tablet PO PRN ×2 (06:15)
[2024-06-30] MEDS ORDERED: magnesium Cl slow-release 64mg tablet PO PRN (06:15)
[2024-06-30] MEDS ORDERED: magnesium sulf-water 4G/100mL 100 ML IV PRN (06:15)
[2024-06-30] MEDS ORDERED: magnesium sulf-water 2g/50mL 50 ML IV PRN (06:15)
[2024-06-30] MEDS ORDERED: potassium Cl 40MEQ/1/2NS 520ml 520 ML IV PRN (06:15)
[2024-06-30] MEDS ORDERED: ondansetron/PF 4mg/2ml inj IV PRN (06:15)
[2024-06-30] MEDS ORDERED: mag hydrox/Alum hydrox/simeth 30ml oral suspension PO PRN (06:15)
[2024-06-30] MEDS: K and/or MAG REPLACEMENT MC SCH (08:00)
[2024-06-30] MEDS: docusate sod 100mg capsule PO SCH (08:00)
[2024-06-30 08:08] LABS: MAGNESIUM 2.1 MG/DL (1.5-2.4); POTASSIUM 4.5 MMOL/L (3.5-5.1)
[2024-06-30] MEDS ORDERED: albumin (human) 25% 100ml IV 100 ML IV PRN (09:50)
[2024-06-30] MEDS: heparin, porcine 5000 units/ml vial SQ SCH (11:22)
[2024-06-30 11:29] LABS: BILIRUBIN,URINE NEGATIVE (Neg); CLARITY,URINE CLOUDY (Clear); COLOR,URINE YELLOW (Yellow); GLUCOSE, URINE NEGATIVE (Neg); KETONES,URINE NEGATIVE (Neg); LEUKOCYTE ESTERASE ,URINE NEGATIVE (Neg); NITRITES, URINE NEGATIVE (Neg); OCCULT BLOOD,URINE MODERATE (Neg); PH,URINE 6.5 (4.8-8.0); PROTEIN,URINE 100 mg/dl (Neg); UROBILINOGEN,URINE 0.2 E.U/dL (0.2-1.0)
[2024-06-30 11:48] LABS: UA COLLECTION TYPE CLN CATCH MIDSTREAM
[2024-06-30] MEDS: diphenhydrAMINE 50 mg/ml inj IV ONE (11:51)
[2024-06-30 12:01] LABS: SQUAMOUS EPITHELIAL CELL,UR MANY /LPF (FEW)
[2024-06-30 12:02] LABS: BACTERIA,URINE 1+ /HPF (Neg); RBC,URINE 20-50 /HPF (0-2); WBC,URINE 0-4 /HPF (0-4)
[2024-06-30] MEDS ORDERED: TACR1TAB PO (12:33)
[2024-06-30] MEDS ORDERED: HYDR50TA46 PO (12:33)
[2024-06-30] MEDS ORDERED: LABE300T4 PO (12:33)
[2024-06-30] MEDS ORDERED: FAMO-129 PO (12:33)
[2024-06-30] MEDS ORDERED: MYCO500T PO (12:33)
[2024-06-30] MEDS: HYDROcodone/acetaminophen 5mg/325mg tablet PO PRN (12:44)
[2024-06-30] MEDS: EPOETIN ALFA-EPBX 20,000 UNIT/ML 1 ML MDV IV ONE (14:18)
[2024-06-30] MEDS: heparin 1,000unit/ml 10ml vial 10 ML IV ONE (14:22)
[2024-06-30] MEDS: heparin 1,000 units/ml 10ml inj IV ONE (14:23)
[2024-06-30] MEDS: heparin 1,000 units/ml 10ml inj HE ONE ×2 (14:23→14:24)
[2024-06-30] MEDS ORDERED: hydrALAZINE 25 MG tablet PO SCH (14:40)
[2024-06-30] MEDS: famotidine 20mg tablet PO SCH (16:30)
[2024-06-30] MEDS: amoxicillin 250mg capsule PO SCH (19:48)
[2024-06-30] MEDS: labetalol 100mg tablet PO SCH (19:49)
[2024-06-30] MEDS: mycophenolate mofetil 250mg capsule PO SCH (19:50)
[2024-07-01] VITALS (8 sets, daily range): BP systolic 146–185; BP diastolic 90–110; PULSE 72–87; RESP 14–23; TEMP 97.6–98.6; O2SAT 94–97
[2024-07-01] MEDS: hydrALAZINE 25 MG tablet PO PRN (03:22)
[2024-07-01 06:13] LABS: BASOPHILS % (AUTO) 0.3 % (0-1); EOSINOPHILS % (AUTO) 0.9 % (0-6); HEMATOCRIT 23.8 % (35.0-45.0); HEMOGLOBIN 7.5 g/dl (12.0-16.0); LYMPHOCYTES # (AUTO) 1.5 X10'3 (1.1-4.8); LYMPHOCYTES % (AUTO) 27.4 % (21-51); MEAN CORPUSCULAR HEMOGLOBIN 27.6 PG (27.0-31.0); MEAN CORPUSCULAR HGB CONC 31.6 g/dL (33.0-36.5); MEAN CORPUSCULAR VOLUME 87.2 FL (78-98); MEAN PLATELET VOLUME 7.2 FL (7.4-10.4); MONOCYTES # (AUTO) 0.4 X10'3 (0-0.9); MONOCYTES % (AUTO) 7.6 % (2-12); NEUTROPHILS # (AUTO) 3.5 X10'3 (1.8-7.7); NEUTROPHILS % (AUTO) 63.8 % (42-75); PLATELET COUNT 398 X10'3 (140-440); RED BLOOD COUNT 2.73 X10'6 (4.20-5.60); RED CELL DISTRIBUTION WIDTH 15.5 % (11.5-14.5); WHITE BLOOD COUNT 5.4 X10'3 (4.5-11.0)
[2024-07-01 06:37] LABS: ALANINE AMINOTRANSFERASE 16 U/L (12-78); ALBUMIN 1.8 G/DL (3.4-5.0); ALBUMIN/GLOBULIN RATIO 0.5 (1.1-1.5); ALKALINE PHOSPHATASE 132 IU/L (46-116); ANION GAP 7 (8-16); ASPARTATE AMINO TRANSFERASE 12 U/L (10-37); BILIRUBIN,TOTAL 0.3 MG/DL (0.1-1.0); BLOOD UREA NITROGEN 30 MG/DL (7-18); BUN/CREATININE RATIO 6.8 (10.0-20.0); CALCIUM 7.9 MG/DL (8.5-10.1); CHLORIDE 105 MMOL/L (99-107); CHOL/HDL RATIO 3.2 (0.00-4.99); CHOLESTEROL 124 MG/DL (0-200); CREATININE 4.41 MG/DL (0.40-0.90); GLUCOSE 82 MG/DL (70-104); HDL CHOLESTEROL 39 MG/DL (35-60); LDL CHOLESTEROL 65 MG/DL (50-100); MAGNESIUM 1.9 MG/DL (1.5-2.4); POTASSIUM 4.3 MMOL/L (3.5-5.1); SODIUM 138 MMOL/L (135-145); TOTAL CARBON DIOXIDE 26.2 MMOL/L (24-32); TOTAL PROTEIN 5.3 G/DL (6.4-8.2); TRIGLYCERIDES 79 MG/DL (20-135); eCRCL 16 ML/MIN; eGFR 11 ML/MIN
[2024-07-01 07:42] LABS: TOTAL CELLS COUNTED 100
[2024-07-01 07:43] LABS: ANISOCYTOSIS 1+; PLATELET ESTIMATE NORMAL
[2024-07-01 07:44] LABS: ELLIPTOCYTES FEW
[2024-07-01] MEDS: COMMUNICATION ORDER 1 EA MISC MC ONE (12:34)
[2024-07-01] MEDS ORDERED: famotidine 20mg tablet PO SCH (13:18)
[2024-07-01] MEDS: TACROLIMUS PO SCH (13:47)
[2024-07-01] MEDS: hydrALAZINE 20mg/ml inj. IV ONE (16:58)
[2024-07-01] MEDS: TACROLIMUS PO ONE (20:10)
[2024-07-02] VITALS (11 sets, daily range): BP systolic 132–189; BP diastolic 82–103; PULSE 71–80; RESP 16–20; TEMP 98.1–98.9; O2SAT 92–98
[2024-07-02] MEDS: butalbital 50MG/acetaminophen 325MG/caffeine 40MG (Fioricet) CAPSULE PO PRN (00:50)
[2024-07-02 06:57] LABS: BASOPHILS % (AUTO) 0.2 % (0-1); EOSINOPHILS # (AUTO) 0.1 X10'3 (0-0.9); EOSINOPHILS % (AUTO) 1.1 % (0-6); LYMPHOCYTES # (AUTO) 1.7 X10'3 (1.1-4.8); LYMPHOCYTES % (AUTO) 31.9 % (21-51); MEAN CORPUSCULAR HEMOGLOBIN 27.6 PG (27.0-31.0); MEAN CORPUSCULAR HGB CONC 31.6 g/dL (33.0-36.5); MEAN CORPUSCULAR VOLUME 87.4 FL (78-98); MONOCYTES # (AUTO) 0.3 X10'3 (0-0.9); MONOCYTES % (AUTO) 5.5 % (2-12); NEUTROPHILS # (AUTO) 3.2 X10'3 (1.8-7.7); NEUTROPHILS % (AUTO) 61.3 % (42-75); PLATELET COUNT 405 X10'3 (140-440); RED BLOOD COUNT 2.44 X10'6 (4.20-5.60); RED CELL DISTRIBUTION WIDTH 15.5 % (11.5-14.5); WHITE BLOOD COUNT 5.2 X10'3 (4.5-11.0)
[2024-07-02 07:15] LABS: ALANINE AMINOTRANSFERASE 17 U/L (12-78); ALBUMIN 1.8 G/DL (3.4-5.0); ALBUMIN/GLOBULIN RATIO 0.5 (1.1-1.5); ALKALINE PHOSPHATASE 126 IU/L (46-116); ANION GAP 8 (8-16); ASPARTATE AMINO TRANSFERASE 16 U/L (10-37); BILIRUBIN,TOTAL 0.3 MG/DL (0.1-1.0); BLOOD UREA NITROGEN 38 MG/DL (7-18); BUN/CREATININE RATIO 6.8 (10.0-20.0); CALCIUM 8.1 MG/DL (8.5-10.1); CHLORIDE 101 MMOL/L (99-107); GLUCOSE 80 MG/DL (70-104); MAGNESIUM 1.8 MG/DL (1.5-2.4); POTASSIUM 4.4 MMOL/L (3.5-5.1); SODIUM 133 MMOL/L (135-145); TOTAL CARBON DIOXIDE 23.7 MMOL/L (24-32); TOTAL PROTEIN 5.3 G/DL (6.4-8.2); eCRCL 12 ML/MIN; eGFR 8 ML/MIN
[2024-07-02 07:18] LABS: HEMOGLOBIN 6.7 g/dl (12.0-16.0)
[2024-07-02 07:19] LABS: HEMATOCRIT 21.3 % (35.0-45.0)
[2024-07-02] MEDS: amLODIPine 5mg tablet PO SCH (08:30)
[2024-07-02] MEDS: lisinopril 5mg tablet PO ONE (09:20)
[2024-07-02] MEDS: EPOETIN ALFA-EPBX 20,000 UNIT/ML 1 ML MDV IV ONE (10:30)
[2024-07-02] MEDS: heparin 1,000unit/ml 10ml vial 10 ML IV ONE (10:31)
[2024-07-02] MEDS: heparin 1,000 units/ml 10ml inj HE ONE ×2 (10:32→10:33)
[2024-07-02] MEDS: heparin 1,000 units/ml 10ml inj IV ONE (10:32)
[2024-07-02] MEDS: diphenhydrAMINE 50 mg/ml inj IV ONE (10:50)
[2024-07-02 11:11] LABS: CREATININE 24 HOUR,URINE 468 MG/24HR (750-1510); TOTAL VOLUME 24HRS,URINE 1300 ML; UREA NITROGEN 24HR,URINE 1.7 GM/24HR (7-20)
[2024-07-02 11:12] LABS: TOTAL PROTEIN 24HR,URINE 2289.3 MG/24HR (28-141)
[2024-07-02 11:55] LABS: MEAN CORPUSCULAR HEMOGLOBIN 27.4 PG (27.0-31.0); MEAN CORPUSCULAR HGB CONC 31.4 g/dL (33.0-36.5); MEAN CORPUSCULAR VOLUME 87.4 FL (78-98); MEAN PLATELET VOLUME 7.5 FL (7.4-10.4); PLATELET COUNT 440 X10'3 (140-440); RED CELL DISTRIBUTION WIDTH 15.6 % (11.5-14.5); WHITE BLOOD COUNT 5.3 X10'3 (4.5-11.0)
[2024-07-02 11:58] LABS: HEMOGLOBIN 6.6 g/dl (12.0-16.0)
[2024-07-02] MEDS ORDERED: ALBU2.5V7 NEB (12:43)
[2024-07-02] MEDS: NORMAL SALINE IV ONE (14:04)
[2024-07-02] MEDS: IRON SUCROSE COMPLEX IV ONE (14:04)
[2024-07-02] MEDS ORDERED: AMOX500C2 PO (16:23)
[2024-07-03 05:23] LABS: HBSAG SCREEN Negative (Negative)
== END 2024-07-02 17:30 | disposition home or self-care (01) | DRG 698 ==
LOC: ER 00:59 → ED HOLD 05:42 → EDBEDREQ 08:09 → PCU 3S 08:37
PROVIDERS: ADMIT Family Medicine; ATTEND Family Medicine
PROC: 5A1D70Z Performance of Urinary Filtration, Intermittent, Less than 6 Hours Per Day (ICD-10-PCS; 2024-06-30)
PROC: CT1 Nuclear Medicine, Urinary System, Planar Nuclear Medicine Imaging (ICD-10-PCS; principal; 2024-07-01)
PROC: 5A1D70Z Performance of Urinary Filtration, Intermittent, Less than 6 Hours Per Day (ICD-10-PCS; 2024-07-02)
DX: T86.12 Kidney transplant failure (principal); N18.6 End stage renal disease; T80.211A Bloodstream infection due to central venous catheter, initial encounter; E87.1 Hypo-osmolality and hyponatremia; I12.0 Hypertensive chronic kidney disease with stage 5 chronic kidney disease or end stage renal disease; E87.70 Fluid overload, unspecified; D64.9 Anemia, unspecified; E77.8 Other disorders of glycoprotein metabolism; Y83.8 Other surgical procedures as the cause of abnormal reaction of the patient, or of later complication, without mention of misadventure at the time of the procedure; Y92.89 Other specified places as the place of occurrence of the external cause; Z87.891 Personal history of nicotine dependence; Z99.2 Dependence on renal dialysis; Z88.2 Allergy status to sulfonamides; Z79.899 Other long term (current) drug therapy; Z85.828 Personal history of other malignant neoplasm of skin
CPT/HCPCS: 36415; 71045; 76705; 80053; 80061; 81001; 82570; 83605; 83735; 83880; 84132; 84156; 84484; 84560; 85007; 85025; 85027; 87040; 87081; 87340; 93005; 93306; 99285; A6449; E1594; G0257; G0378; J0360; J1200; J1644; J1756; J1940; J7030; J7050; J7517; Q4081

== ENCOUNTER 2024-07-22 06:51 | Emergency (ER) | payer MEDICARE, BC, MEDICAID ==
[~2024-07-22] VITALS: Ht 170.2 cm; Wt 75.0 kg
[~2024-07-22 06:51] MED LIST changes: +ALBU2.5V7 NEB; -AMLO2.5T2 PO; +AMOX500C2 PO; +FAMO-129 PO; -FOLI0.8T39 PO; +HYDR50TA46 PO; -LOSA-416 PO; +MYCO500T PO; -PHO667C PO; +TACR1TAB PO
[2024-07-22] MEDS: LIDOcaine 1% W/epiNEPHrine 1:100,000 20ml vial SQ ONE (07:06)
[2024-07-22] MEDS: oxymetazoline 15 ML nasal spray NS ONE (07:07)
[2024-07-22 08:24] LABS: BASOPHILS % (AUTO) 0.3 % (0-1); EOSINOPHILS # (AUTO) 0.1 X10'3 (0-0.9); HEMATOCRIT 25.6 % (35.0-45.0); LYMPHOCYTES # (AUTO) 1.6 X10'3 (1.1-4.8); LYMPHOCYTES % (AUTO) 23.6 % (21-51); MEAN CORPUSCULAR HEMOGLOBIN 27.7 PG (27.0-31.0); MEAN CORPUSCULAR HGB CONC 31.4 g/dL (33.0-36.5); MEAN CORPUSCULAR VOLUME 88.3 FL (78-98); MEAN PLATELET VOLUME 6.7 FL (7.4-10.4); MONOCYTES # (AUTO) 0.3 X10'3 (0-0.9); MONOCYTES % (AUTO) 4.6 % (2-12); NEUTROPHILS # (AUTO) 4.6 X10'3 (1.8-7.7); NEUTROPHILS % (AUTO) 69.5 % (42-75); PLATELET COUNT 356 X10'3 (140-440); RED BLOOD COUNT 2.89 X10'6 (4.20-5.60); RED CELL DISTRIBUTION WIDTH 16.2 % (11.5-14.5); WHITE BLOOD COUNT 6.7 X10'3 (4.5-11.0)
[2024-07-22 08:38] LABS: ALBUMIN 2.7 G/DL (3.4-5.0); ANION GAP 12 (8-16); BLOOD UREA NITROGEN 74 MG/DL (7-18); BUN/CREATININE RATIO 11.6 (10.0-20.0); CALCIUM 8.7 MG/DL (8.5-10.1); CHLORIDE 106 MMOL/L (99-107); CREATININE 6.37 MG/DL (0.40-0.90); GLUCOSE 95 MG/DL (70-104); POTASSIUM 5.6 MMOL/L (3.5-5.1); SODIUM 135 MMOL/L (135-145); TOTAL CARBON DIOXIDE 16.7 MMOL/L (24-32); eCRCL 11 ML/MIN; eGFR 7 ML/MIN
[2024-07-22] MEDS: dextrose 50%-water 50ml dispensing syringe IV ONE ×2 (10:16→11:32)
[2024-07-22] MEDS: insulin regular, human 10 units/0.1 ml syringe IV ONE (10:19)
[2024-07-22] MEDS: sodium polystyrene sulfonate 15gm/60ml oral suspension PO ONE (10:20)
[2024-07-22] MEDS: sodium bicarbonate 650mg tablet PO ONE (13:34)
[2024-07-22] MEDS: sodium bicarbonate (8.4%) 1 mEq/ml syringe IV ONE (14:15)
[2024-07-22] MEDS ORDERED: KAY15L PO (14:40)
[2024-07-22 15:08] VITALS: BP 161/91; PULSE 77; RESP 18; TEMP 97.5; O2SAT 98
== END 2024-07-22 15:10 | disposition home or self-care (01) ==
LOC: ER 06:52
DX: R04.0 Epistaxis (principal); I12.9 Hypertensive chronic kidney disease with stage 1 through stage 4 chronic kidney disease, or unspecified chronic kidney disease; N18.9 Chronic kidney disease, unspecified; Z88.2 Allergy status to sulfonamides; Z94.0 Kidney transplant status; Z95.0 Presence of cardiac pacemaker; Z79.899 Other long term (current) drug therapy
CPT/HCPCS: 30901; 36415; 80048; 82948; 84132; 85025; 93005; 96374; 96375; 96376; 99285; J1815; J3490

== ENCOUNTER 2024-07-25 00:11 | Emergency (ER) | payer MEDICARE, BC, MEDICAID ==
[~2024-07-25] VITALS: Ht 170.2 cm; Wt 72.7 kg
[~2024-07-25 00:11] MED LIST changes: +KAY15L PO
[2024-07-25 00:15] VITALS: TEMP 98.5
[2024-07-25] MEDS: oxymetazoline 15 ML nasal spray NS ONE (00:52)
[2024-07-25] MEDS: tranexamic acid 100mg/ml inj. TP ONE (00:52)
[2024-07-25 01:05] LABS: BASOPHILS % (AUTO) 0.9 % (0-1); EOSINOPHILS # (AUTO) 0.1 X10'3 (0-0.9); EOSINOPHILS % (AUTO) 2.4 % (0-6); HEMATOCRIT 22.1 % (35.0-45.0); LYMPHOCYTES # (AUTO) 1.5 X10'3 (1.1-4.8); LYMPHOCYTES % (AUTO) 31.8 % (21-51); MEAN CORPUSCULAR HEMOGLOBIN 27.7 PG (27.0-31.0); MEAN CORPUSCULAR HGB CONC 31.6 g/dL (33.0-36.5); MEAN CORPUSCULAR VOLUME 87.6 FL (78-98); MONOCYTES # (AUTO) 0.3 X10'3 (0-0.9); MONOCYTES % (AUTO) 5.7 % (2-12); NEUTROPHILS # (AUTO) 2.8 X10'3 (1.8-7.7); NEUTROPHILS % (AUTO) 59.2 % (42-75); PLATELET COUNT 312 X10'3 (140-440); RED BLOOD COUNT 2.52 X10'6 (4.20-5.60); RED CELL DISTRIBUTION WIDTH 15.8 % (11.5-14.5); WHITE BLOOD COUNT 4.7 X10'3 (4.5-11.0)
[2024-07-25] MEDS: ondansetron/PF 4mg/2ml inj IV ONE (01:32)
[2024-07-25 01:37] LABS: ALANINE AMINOTRANSFERASE 29 U/L (12-78); ALBUMIN 2.8 G/DL (3.4-5.0); ALBUMIN/GLOBULIN RATIO 0.7 (1.1-1.5); ALKALINE PHOSPHATASE 138 IU/L (46-116); ANION GAP 10 (8-16); ASPARTATE AMINO TRANSFERASE 21 U/L (10-37); BILIRUBIN,TOTAL 0.3 MG/DL (0.1-1.0); BLOOD UREA NITROGEN 47 MG/DL (7-18); BUN/CREATININE RATIO 9.7 (10.0-20.0); CALCIUM 8.9 MG/DL (8.5-10.1); CHLORIDE 103 MMOL/L (99-107); CREATININE 4.86 MG/DL (0.40-0.90); GLUCOSE 97 MG/DL (70-104); POTASSIUM 4.3 MMOL/L (3.5-5.1); PRO BRAIN NATRIURETIC PEPTIDE 9544 PG/ML (0-125); SODIUM 139 MMOL/L (135-145); TOTAL CARBON DIOXIDE 26.3 MMOL/L (24-32); TOTAL PROTEIN 6.8 G/DL (6.4-8.2); eCRCL 14 ML/MIN; eGFR 10 ML/MIN
[2024-07-25 02:30] VITALS: BP 146/89; O2SAT 98
[2024-07-25 03:02] VITALS: PULSE 76; RESP 13
== END 2024-07-25 03:03 | disposition home or self-care (01) ==
LOC: ER 00:13
DX: R04.0 Epistaxis (principal); I12.9 Hypertensive chronic kidney disease with stage 1 through stage 4 chronic kidney disease, or unspecified chronic kidney disease; D63.1 Anemia in chronic kidney disease; N18.9 Chronic kidney disease, unspecified; Z94.0 Kidney transplant status; Z88.2 Allergy status to sulfonamides; Z79.899 Other long term (current) drug therapy
CPT/HCPCS: 36415; 71045; 80053; 83880; 84484; 85025; 93005; 96374; 99285; J2405

== ENCOUNTER 2024-12-09 13:34 | Emergency (ER) | payer MEDICARE, MEDICAID ==
[~2024-12-09] VITALS: Ht 170.2 cm; Wt 68.4 kg
[~2024-12-09 13:34] MED LIST changes: -AMOX500C2 PO; -KAY15L PO
[2024-12-09 14:12] LABS: BASOPHILS % (AUTO) 0.4 % (0-1); EOSINOPHILS # (AUTO) 0.1 X10'3 (0-0.9); EOSINOPHILS % (AUTO) 1.8 % (0-6); HEMATOCRIT 29.1 % (35.0-45.0); HEMOGLOBIN 9.3 g/dl (12.0-16.0); LYMPHOCYTES # (AUTO) 0.8 X10'3 (1.1-4.8); LYMPHOCYTES % (AUTO) 26.8 % (21-51); MEAN CORPUSCULAR HEMOGLOBIN 26.9 PG (27.0-31.0); MEAN CORPUSCULAR HGB CONC 32.1 g/dL (33.0-36.5); MEAN CORPUSCULAR VOLUME 83.7 FL (78-98); MEAN PLATELET VOLUME 7.4 FL (7.4-10.4); MONOCYTES # (AUTO) 0.2 X10'3 (0-0.9); MONOCYTES % (AUTO) 5.9 % (2-12); NEUTROPHILS % (AUTO) 65.1 % (42-75); PLATELET COUNT 259 X10'3 (140-440); RED BLOOD COUNT 3.47 X10'6 (4.20-5.60); WHITE BLOOD COUNT 3.1 X10'3 (4.5-11.0)
[2024-12-09 14:29] LABS: ALANINE AMINOTRANSFERASE 32 U/L (12-78); ALBUMIN/GLOBULIN RATIO 0.8 (1.1-1.5); ALKALINE PHOSPHATASE 106 IU/L (46-116); ANION GAP 12 (8-16); ASPARTATE AMINO TRANSFERASE 23 U/L (10-37); BILIRUBIN,TOTAL 0.7 MG/DL (0.1-1.0); BLOOD UREA NITROGEN 60 MG/DL (7-18); BUN/CREATININE RATIO 7.9 (10.0-20.0); CALCIUM 8.5 MG/DL (8.5-10.1); CHLORIDE 101 MMOL/L (99-107); CREATININE 7.57 MG/DL (0.40-0.90); GLUCOSE 116 MG/DL (70-104); POTASSIUM 4.5 MMOL/L (3.5-5.1); SODIUM 134 MMOL/L (135-145); TOTAL PROTEIN 6.7 G/DL (6.4-8.2); eCRCL 9 ML/MIN; eGFR 6 ML/MIN
[2024-12-09 14:46] LABS: PRO BRAIN NATRIURETIC PEPTIDE 14618 PG/ML (0-125)
[2024-12-09] MEDS: normal saline 1000ml 1,000 ML IV STA (17:22)
[2024-12-09] MEDS: mag hydrox/Alum hydrox/simeth 30ml oral suspension PO STA (17:23)
[2024-12-09] MEDS: sucralfate 1 gm tablet PO STA (17:24)
[2024-12-09] MEDS: pantoprazole 40 MG vial IV STA (17:24)
[2024-12-09] MEDS ORDERED: acetaminophen 325mg tablet PO PRN ×2 (17:25)
[2024-12-09] MEDS ORDERED: magnesium sulf-water 4G/100mL 100 ML IV PRN (17:25)
[2024-12-09] MEDS ORDERED: morphine 2 MG/ML inj. syringe IV PRN (17:25)
[2024-12-09] MEDS ORDERED: magnesium Cl slow-release 64mg tablet PO PRN (17:25)
[2024-12-09] MEDS ORDERED: HYDROcodone/acetaminophen 5mg/325mg tablet PO PRN (17:25)
[2024-12-09] MEDS ORDERED: magnesium sulf-water 2g/50mL 50 ML IV PRN (17:25)
[2024-12-09] MEDS ORDERED: potassium Cl 20 mEq SR tablet PO PRN ×2 (17:25)
[2024-12-09] MEDS: ondansetron/PF 4mg/2ml inj IV STA (17:25)
[2024-12-09] MEDS ORDERED: ondansetron/PF 4mg/2ml inj IV PRN (17:25)
[2024-12-09] MEDS ORDERED: potassium Cl 40MEQ/1/2NS 520ml 520 ML IV PRN (17:25)
[2024-12-09] MEDS ORDERED: TRAZ-251 PO (17:49)
[2024-12-09 19:27] VITALS: BP 182/116; PULSE 70; RESP 15; TEMP 98.6; O2SAT 96
[2024-12-09] MEDS ORDERED: SUCR1TAB PO (19:36)
[2024-12-09] MEDS ORDERED: PANT-47 PO (19:38)
[2024-12-09] MEDS ORDERED: ONDA-243 PO (19:38)
[2024-12-09] MEDS ORDERED: labetalol 100mg tablet PO SCH (20:00)
[2024-12-09] MEDS ORDERED: mycophenolate mofetil 250mg capsule PO SCH (20:00)
[2024-12-09] MEDS ORDERED: heparin, porcine 5000 units/ml vial SQ SCH (20:00)
[2024-12-09] MEDS ORDERED: traZODone 50mg tablet PO SCH (21:00)
[2024-12-10] MEDS ORDERED: TACROLIMUS 1 MG PO SCH (08:00)
[2024-12-10] MEDS ORDERED: famotidine 20mg tablet PO SCH (08:00)
== END 2024-12-09 19:52 | disposition home or self-care (01) ==
LOC: ER 13:34 → UNDOADMIN 17:30 → ED HOLD 17:30 → EDBEDREQ 19:36 → UNDODISIN 19:55
DX: R10.13 Epigastric pain (principal); R07.9 Chest pain, unspecified; I12.9 Hypertensive chronic kidney disease with stage 1 through stage 4 chronic kidney disease, or unspecified chronic kidney disease; N18.9 Chronic kidney disease, unspecified; Z94.0 Kidney transplant status; Z88.2 Allergy status to sulfonamides
CPT/HCPCS: 36415; 71045; 80053; 83605; 83880; 84484; 85025; 87040; 93005; 96365; 96375; 99285; J2405; J2470; J7030; G0378

== ENCOUNTER 2025-01-14 12:49 | Outpatient (CLI) | payer MEDICARE, MEDICAID ==
[~2025-01-14 12:49] MED LIST changes: -ALBU2.5V7 NEB; -HYDR50TA46 PO; +ONDA-243 PO; +PANT-47 PO; +SUCR1TAB PO; +TRAZ-251 PO
--- NOTE | 2025-01-14 14:48 | RADIOLOGY REPORT ---
CLINICAL HISTORY: 44 years old, Female; LOCALIZED SWELLING, MASS AND LUMP, LEFT LOWER LIMB. TECHNIQUE: Multi sequence multi planar MRI images of the left thigh were obtained without IV contras t. COMPARISON: None FINDINGS: Near the location of the palpable abnormality in the proximal lateral aspect of the left t high, there is an ovoid T2 hyperintense mass within the left vastus lateralis muscle measuring up to 1.4 cm in greatest dimension. The mass is well-circumscribed and smoothly marginated. The masses fair ly homogeneously T2 hyperintense and T1 hypointense. No adjacent intramuscular edema is seen. No othe r mass or suspicious abnormality identified in the left thigh. No marrow signal abnormality in the le ft femur. IMPRESSION: Intramuscular mass in the left vastus lateralis muscle. Differential considerations would include per ipheral nerve sheath tumor, including neurofibroma or schwannoma, or intramuscular myxoma. Postcontra st imaging may be helpful to further characterize.
== END 2025-01-14 23:59 | disposition home or self-care (01) ==
LOC: MRI02 12:49
PROVIDERS: ATTEND Family Medicine
DX: R22.42 Localized swelling, mass and lump, left lower limb (principal)
CPT/HCPCS: 73718